=== PATIENT | female | born 1995 | race African-American/Black ===

== ENCOUNTER 2017-01-13 05:52 | Observation (INO) | payer OTHER ==
[~2017-01-13] VITALS: Ht 162.6 cm; Wt 69.9 kg
[2017-01-13] MEDS ORDERED: ONDANSETRON HCL 4 MG/2 ML VIAL IV ONE (06:45)
== END 2017-01-13 08:15 | disposition home or self-care (01) | DRG 566 ==
LOC: LDRP 05:52
PROVIDERS: ADMIT Obstetrics & Gynecology; ATTEND Obstetrics & Gynecology
DX: O21.2 Late vomiting of pregnancy (principal); O26.892 Other specified pregnancy related conditions, second trimester; R19.7 Diarrhea, unspecified; R10.9 Unspecified abdominal pain; Z3A.24 24 weeks gestation of pregnancy
CPT/HCPCS: 59025; 81002; G0378; J2405; J7030

== ENCOUNTER 2018-02-25 03:42 | Emergency (ER) | payer OTHER ==
[~2018-02-25] VITALS: Ht 160 cm; Wt 90.7 kg
[2018-02-25] MEDS ORDERED: SODIUM CHLORIDE 0.9% 1,000 ML IV ONE ×2 (04:45)
[2018-02-25] MEDS ORDERED: cefTRIAXone 1GM/10ml IVPUSH 10 ML IV ONE (04:45)
[2018-02-25] MEDS ORDERED: metroNIDAZOLE 500MG/100ML 100 ML IV ONE (04:45)
[2018-02-25] MEDS ORDERED: ONDANSETRON HCL 4 MG/2 ML VIAL IV ONE (04:45)
[2018-02-25 04:58] LABS: Basophils # (auto) 0.1 uL; Basophils % (auto) 0.5 % (0.0-2.0); Eosinophils # (auto) 0 uL; Eosinophils % (auto) 0.1 % (0.0-7.0); Hematocrit 44.4 % (36.0-46.0); Hemoglobin 14.8 g/dL (12.2-16.2); Lymphocytes # (auto) 1.6 uL; Lymphocytes % (auto) 14.6 % (10.0-50.0); Mean Corpuscular Hemoglobin 28.9 pg (28.0-32.0); Mean Corpuscular Hgb Conc. 33.4 g/dL (32.0-36.0); Mean Corpuscular Volume 86.5 fL (80.0-100.0); Monocytes # (auto) 0.5 uL; Monocytes % (auto) 4.5 % (0.0-12.0); Neutrophils # (auto) 8.6 uL; Neutrophils % (auto) 80.3 % (37.0-80.0); Platelet Count (auto) 250 10^3/uL (140-450); Red Blood Cells 5.14 10^6/uL (4.0-5.20); Red Cell Distribution Width 14.1 % (11.8-14.3); White Blood Cell 10.7 10^3/uL (4.4-10.8)
[2018-02-25 05:11] LABS: INR 1.02 (0.9-1.15); Partial Thromboplastin Time 30.1 sec (23.78-33.04); Prothrombin Time 10.9 sec (9.27-12.13)
[2018-02-25 05:11] LABS: Urine Bacteria FEW /hpf (None Seen); Urine Blood Negative /uL (Negative); Urine Mucus FEW (None Seen); Urine WBC 32 /hpf (0 - 5)
[2018-02-25 05:16] LABS: Albumin 3.6 g/dL (3.4-5.0); BUN/Creatinine Ratio 9.3; Calcium 8.5 mg/dL (8.5-10.1); Potassium 3.2 mmol/L (3.5-5.1)
[2018-02-25 05:19] LABS: Bilirubin, Total 0.4 mg/dL (0.2-1.0); Total Protein 7.4 g/dL (6.4-8.2)
[2018-02-25 06:18] VITALS: BP 121/73
== END 2018-02-25 06:09 | disposition home or self-care (01) ==
LOC: EDBD 03:42 → ER 03:42
DX: K52.9 Noninfective gastroenteritis and colitis, unspecified (principal); F10.10 Alcohol abuse, uncomplicated; F17.210 Nicotine dependence, cigarettes, uncomplicated
CPT/HCPCS: 36415; 80053; 80320; 81001; 81025; 82150; 83690; 85025; 85610; 85730; 96365; 96375; 99284; J2405; J3490; J7030

== ENCOUNTER 2018-06-04 07:46 | Emergency (ER) | payer OTHER ==
[~2018-06-04] VITALS: Ht 160 cm; Wt 90.7 kg
[2018-06-04 08:10] VITALS: BP 141/70
[2018-06-04] MEDS ORDERED: KETOROLAC TROMETH 60MG/2ML VIAL IM ONE (08:30)
[2018-06-04] MEDS ORDERED: cefTRIAXone SOD 1,000 MG VL IM ONE (08:30)
[2018-06-04] MEDS ORDERED: methylPREDNISolone SOD SUCC 125 MG/2 ML VL IM ONE (08:30)
[2018-06-04] MEDS ORDERED: LIDOCAINE 1% (LOCAL ANESTH.) PF 5ml SDV ONE (08:41)
== END 2018-06-04 09:02 | disposition home or self-care (01) ==
LOC: ER 07:46
DX: K12.2 Cellulitis and abscess of mouth (principal); M54.2 Cervicalgia; F17.210 Nicotine dependence, cigarettes, uncomplicated; F12.90 Cannabis use, unspecified, uncomplicated
CPT/HCPCS: 96372; 99284; J0696; J1885; J2930

== ENCOUNTER 2020-05-18 17:30 | Emergency (ER) | payer MEDICAID, OTHER ==
[~2020-05-18] VITALS: Ht 162.6 cm; Wt 90.7 kg
[2020-05-18] MEDS ORDERED: cloNIDine HCL 0.1 MG TAB PO ONE (23:00)
[2020-05-18 23:21] LABS: Basophils # (auto) 0.1 10 ^3/uL (0-0.2); Basophils % (auto) 0.6 % (0.0-2.0); Eosinophils # (auto) 0 10 ^3/uL (0-0.8); Eosinophils % (auto) 0.4 % (0.0-7.0); Hematocrit 39.2 % (36.0-46.0); Hemoglobin 12.8 g/dL (12.2-16.2); Lymphocytes # (auto) 1.5 10 ^3/uL (0.4-5.4); Lymphocytes % (auto) 16.1 % (10.0-50.0); Mean Corpuscular Hemoglobin 29.9 pg (28.0-32.0); Mean Corpuscular Hgb Conc. 32.5 g/dL (32.0-36.0); Monocytes # (auto) 0.6 10 ^3/uL (0-1.3); Monocytes % (auto) 6.8 % (0.0-12.0); Neutrophils % (auto) 76.1 % (37.0-80.0); Nucleated Red Blood Cells % 0.1 %; Platelet Count (auto) 133 10^3/uL (140-450); Red Blood Cells 4.27 10^6/uL (4.0-5.20); Red Cell Distribution Width 14.7 % (11.8-14.3); White Blood Cell 9.1 10^3/uL (4.4-10.8)
[2020-05-18 23:32] LABS: Urine Bacteria FEW /hpf (None Seen); Urine Blood Negative /uL (Negative); Urine Hyaline Cast FEW /lpf (0 - 2); Urine Specific Gravity 1.008 (1.001-1.035); Urine WBC 1 /hpf (0 - 5)
[2020-05-18 23:39] LABS: Calcium 8.8 mg/dL (8.5-10.1); Potassium 3.9 mmol/L (3.5-5.1)
[2020-05-18 23:42] LABS: Albumin 3.8 g/dL (3.4-5.0); BUN/Creatinine Ratio 9.5
[2020-05-18 23:45] LABS: Bilirubin, Total 0.5 mg/dL (0.2-1.0); Total Protein 7.2 g/dL (6.4-8.2)
[2020-05-18 23:48] LABS: Alcohol, Urine < 3.0 mg/dL (0-10); Amphetamine Screen, Urine NEGATIVE (NEGATIVE); Barbiturate Scree,Urine NEGATIVE (NEGATIVE); Benzodiazephine Screen, Urine NEGATIVE (NEGATIVE); Cannabinoid Screen, Urine POSITIVE (NEGATIVE); Cocaine Screen, Urine NEGATIVE (NEGATIVE); Opiate Scree,Urine NEGATIVE (NEGATIVE); Phencyclidine Screen, Urine NEGATIVE (NEGATIVE)
[2020-05-19 03:00] VITALS: BP 163/100
== END 2020-05-19 03:36 | disposition other institution (70) ==
LOC: ER 17:30
DX: I10 Essential (primary) hypertension (principal); F41.9 Anxiety disorder, unspecified; R51 Headache; D36.7 Benign neoplasm of other specified sites
CPT/HCPCS: 36415; 70450; 80053; 80307; 81001; 81025; 82962; 85025

== ENCOUNTER → 2020-05-19 | Emergency (ER) | payer MEDICAID ==
[~2020-05-19] VITALS: Ht 162.6 cm; Wt 90.7 kg
[~2020-05-19] MED LIST: IOHEXOL 300 MG/ML 100ML BOTTLE IJ ONE
[2020-05-19 12:23] LABS: Urine Bacteria FEW /hpf (None Seen); Urine Blood Negative /uL (Negative); Urine Mucus FEW (None Seen); Urine Specific Gravity 1.027 (1.001-1.035); Urine WBC 15 /hpf (0 - 5)
[2020-05-19 12:45] LABS: Basophils # (auto) 0 10 ^3/uL (0-0.2); Basophils % (auto) 0.4 % (0.0-2.0); Eosinophils # (auto) 0.1 10 ^3/uL (0-0.8); Eosinophils % (auto) 0.5 % (0.0-7.0); Hematocrit 37.4 % (36.0-46.0); Hemoglobin 12.4 g/dL (12.2-16.2); Lymphocytes # (auto) 1.4 10 ^3/uL (0.4-5.4); Lymphocytes % (auto) 13.7 % (10.0-50.0); Mean Corpuscular Hemoglobin 30.4 pg (28.0-32.0); Mean Corpuscular Hgb Conc. 33.1 g/dL (32.0-36.0); Mean Corpuscular Volume 91.9 fL (80.0-100.0); Monocytes # (auto) 0.9 10 ^3/uL (0-1.3); Monocytes % (auto) 8.8 % (0.0-12.0); Neutrophils % (auto) 76.6 % (37.0-80.0); Nucleated Red Blood Cells % 0.1 %; Platelet Count (auto) 144 10^3/uL (140-450); Red Blood Cells 4.07 10^6/uL (4.0-5.20); Red Cell Distribution Width 14.6 % (11.8-14.3); White Blood Cell 10.4 10^3/uL (4.4-10.8)
[2020-05-19 13:01] LABS: Albumin 3.8 g/dL (3.4-5.0); Anion Gap 5 (5-15); Blood Urea Nitrogen 16 mg/dL (7-18); Calcium 8.9 mg/dL (8.5-10.1); Carbon Dioxide 29 mmol/L (21-32); Chloride 106 mmol/L (98-107); Glucose 90 mg/dL (74-106); Potassium 3.6 mmol/L (3.5-5.1); Sodium 140 mmol/L (136-145)
[2020-05-19 13:07] LABS: Alanine Aminotransferase 28 U/L (13-56); Alkaline Phosphatase 80 U/L (45-117); Aspartate Aminotransferase 15 U/L (15-37); BUN/Creatinine Ratio 11.9; Bilirubin, Total 0.4 mg/dL (0.2-1.0); GFR African American 61 mL/min; GFR Non-African American 50 mL/min
[2020-05-19 14:47] VITALS: BP 160/98
== END | disposition home or self-care (01) ==
LOC: ER 10:34
DX: D35.00 Benign neoplasm of unspecified adrenal gland (principal); I10 Essential (primary) hypertension; F17.210 Nicotine dependence, cigarettes, uncomplicated
CPT/HCPCS: 36415; 71045; 74177; 80053; 81001; 84484; 85025; 99285; Q9967

== ENCOUNTER 2020-06-30 11:55 | Emergency (ER) | payer MEDICAID ==
[~2020-06-30] VITALS: Ht 162.6 cm; Wt 72.6 kg
[2020-06-30] MEDS ORDERED: SODIUM CHLORIDE 0.9% 1,000 ML IV ONE ×2 (12:15)
[2020-06-30] MEDS ORDERED: amLODIPine BESYLATE 5 MG TAB PO ONE (12:15)
[2020-06-30 13:34] LABS: Basophils # (auto) 0 10 ^3/uL (0-0.2); Basophils % (auto) 0.4 % (0.0-2.0); Eosinophils # (auto) 0.1 10 ^3/uL (0-0.8); Eosinophils % (auto) 0.7 % (0.0-7.0); Hematocrit 43.7 % (36.0-46.0); Hemoglobin 14.6 g/dL (12.2-16.2); Lymphocytes # (auto) 0.9 10 ^3/uL (0.4-5.4); Lymphocytes % (auto) 12.7 % (10.0-50.0); Mean Corpuscular Hemoglobin 28.9 pg (28.0-32.0); Mean Corpuscular Hgb Conc. 33.4 g/dL (32.0-36.0); Mean Corpuscular Volume 86.5 fL (80.0-100.0); Monocytes # (auto) 0.6 10 ^3/uL (0-1.3); Monocytes % (auto) 8.1 % (0.0-12.0); Neutrophils # (auto) 5.5 10 ^3/uL (1.6-8.6); Neutrophils % (auto) 78.1 % (37.0-80.0); Nucleated Red Blood Cells % 0.1 %; Platelet Count (auto) 206 10^3/uL (140-450); Red Blood Cells 5.05 10^6/uL (4.0-5.20); Red Cell Distribution Width 13.5 % (11.8-14.3); White Blood Cell 7.1 10^3/uL (4.4-10.8)
[2020-06-30 13:50] LABS: Anion Gap 8 (5-15); Blood Urea Nitrogen 14 mg/dL (7-18); Calcium 9.6 mg/dL (8.5-10.1); Carbon Dioxide 29 mmol/L (21-32); Chloride 101 mmol/L (98-107); Glucose 94 mg/dL (74-106); Sodium 138 mmol/L (136-145)
[2020-06-30 13:52] LABS: Alanine Aminotransferase 39 U/L (13-56); Aspartate Aminotransferase 25 U/L (15-37); BUN/Creatinine Ratio 11.1; GFR African American 66 mL/min; GFR Non-African American 55 mL/min
[2020-06-30 14:00] VITALS: BP 145/90
[2020-06-30 14:00] LABS: Alkaline Phosphatase 81 U/L (45-117); Bilirubin, Total 0.5 mg/dL (0.2-1.0); Total Protein 7.7 g/dL (6.4-8.2)
[2020-06-30 14:09] LABS: Potassium 2.7 mmol/L (3.5-5.1)
[2020-06-30 14:43] LABS: Urine Bacteria NONE SEEN /hpf (None Seen); Urine Blood Negative /uL (Negative); Urine Specific Gravity 1.005 (1.001-1.035); Urine WBC 1 /hpf (0 - 5)
[2020-06-30] MEDS ORDERED: POTASSIUM CHL 20MEQ/100ML 100 ML IV ONE (14:45)
[2020-06-30] MEDS ORDERED: POTASSIUM EFFERVESENT TAB 25 MEQ PO ONE (14:45)
== END 2020-06-30 15:17 | disposition home or self-care (01) ==
LOC: EDBD 11:55 → ER 11:55
DX: I16.0 Hypertensive urgency (principal); R55 Syncope and collapse; E87.6 Hypokalemia; F17.210 Nicotine dependence, cigarettes, uncomplicated
CPT/HCPCS: 36415; 70450; 71045; 80053; 81001; 84484; 85025; 96361; 96374; 99285; J3480; J7030; 96365

== ENCOUNTER 2020-08-28 04:44 | Emergency (ER) | payer MEDICAID ==
[~2020-08-28] VITALS: Ht 154.9 cm; Wt 72.6 kg
[2020-08-28 04:55] VITALS: BP 160/103
[2020-08-28] MEDS ORDERED: HYDROcodone-ACET 10/325MG TAB PO ONE (07:00)
[2020-08-28] MEDS ORDERED: ONDANSETRON ODT 4 MG TAB PO ONE (07:00)
== END 2020-08-28 09:15 | disposition left against medical advice (07) ==
LOC: ER 04:44 → EDUNIT# 04:44 → EDBD 04:44 → ER 09:15
DX: R51.9 Headache, unspecified (principal); I10 Essential (primary) hypertension; F17.210 Nicotine dependence, cigarettes, uncomplicated

== ENCOUNTER 2020-10-14 11:42 | Inpatient (IN) | payer MEDICAID ==
[~2020-10-14] VITALS: Ht 160 cm; Wt 91.2 kg
[2020-10-14] MEDS ORDERED: LORazepam 2MG/ML-1ML VIAL IV ONE (12:00)
[2020-10-14] MEDS ORDERED: hydrALAZINE HCL 20 MG/ML VL IV ONE (12:00)
[2020-10-14] MEDS ORDERED: SODIUM CHLORIDE 0.9% 1,000 ML IV ONE (12:00)
[2020-10-14] MEDS ORDERED: MORPHINE SULFATE 4 MG/ML SYR/VIAL IV ONE (12:00)
[2020-10-14] MEDS ORDERED: ONDANSETRON HCL 4 MG/2 ML VIAL IV ONE (12:00)
[2020-10-14 12:36] LABS: Hematocrit 14.6 % (36.0-46.0); Mean Corpuscular Hemoglobin 30.4 pg (28.0-32.0); Mean Corpuscular Hgb Conc. 35.3 g/dL (32.0-36.0)
[2020-10-14 12:51] LABS: INR 1.07 (0.9-1.15); Partial Thromboplastin Time 24.1 sec (23.0-31.2)
[2020-10-14 12:56] LABS: Hemoglobin 5.2 g/dL (12.2-16.2)
[2020-10-14 12:57] LABS: Basophils % (manual) 0 (0.0-2.0); Blast Cells 0; Eosinophils % (manual) 0 (0-7); Platelet Count (auto) 24 10^3/uL (140-450); Promyelocytes % 0; Reactive Lymphocytes 0
[2020-10-14 14:14] LABS: Albumin 3.6 g/dL (3.4-5.0); BUN/Creatinine Ratio 6.7; Calcium 8.9 mg/dL (8.5-10.1); Magnesium 2.3 mg/dL (1.6-2.6); Potassium 3.8 mmol/L (3.5-5.1)
[2020-10-14 14:22] LABS: Bilirubin, Total 0.8 mg/dL (0.2-1.0); Total Protein 7.5 g/dL (6.4-8.2)
[2020-10-14 14:27] LABS: Band Neutrophils % (manual) 19; Lymphocytes % (manual) 13 (10.0-50.0); Metamyelocytes % 7; Monocytes % (manual) 4 (0-12); Myelocytes % 2
[2020-10-14] MEDS ORDERED: amLODIPine BESYLATE 5 MG TAB PO ONE (15:30)
[2020-10-14 15:44] LABS: Urine Amorphous Crystal FEW /hpf (None Seen); Urine Bacteria FEW /hpf (None Seen); Urine Blood 3+ /uL (Negative); Urine Specific Gravity 1.009 (1.001-1.035); Urine WBC 6 /hpf (0 - 5)
[2020-10-14] MEDS ORDERED: LABETALOL HCL 5 MG/ML 4ML SYRINGE IV ONE (17:00)
[2020-10-14] MEDS ORDERED: NITROGLYCERIN 0.4 MG SL TAB SL PRN (18:00)
[2020-10-14] MEDS: SODIUM BICARBONATE 50ML VIAL 50 ML in SOD CHL 0.45% 1,000 ML IV SCH (18:00)
[2020-10-14] MEDS ORDERED: METOPROLOL SUCCINATE XL 50 MG TAB PO ONE (18:00)
[2020-10-14] MEDS ORDERED: MORPHINE SULF INJ 2 MG/ML SYRINGE 1ML IV PRN (18:00)
[2020-10-14] MEDS: AZITHROMYCIN 500MG/ 250ML 250 ML IV SCH (18:22)
[2020-10-14] MEDS: FAMOTIDINE 20 MG TAB PO SCH (18:50)
[2020-10-14] MEDS: cefTRIAXone 1GM/50ML D5W 50 ML IV SCH (18:50)
[2020-10-14 18:54] LABS: % Iron Saturation 94.9 % (15-50)
[2020-10-14 19:13] LABS: Follicle Stimulating Hormone 1.13 IU/L (SEE BELOW)
[2020-10-14] MEDS: MORPHINE SULF INJ 2 MG/ML SYRINGE 1ML IV PRN (21:47)
[2020-10-14] MEDS: ONDANSETRON HCL 4 MG/2 ML VIAL IV PRN (21:47)
[2020-10-15] VITALS (14 sets, daily range): BP systolic 139–169; BP diastolic 75–104
[2020-10-15] MEDS: ACETAMINOPHEN 500 MG TAB PO PRN (01:27)
[2020-10-15] MEDS: LABETALOL HCL 5 MG/ML 4ML SYRINGE IV PRN (01:28)
[2020-10-15] MEDS: MORPHINE SULF INJ 2 MG/ML SYRINGE 1ML IV PRN (04:24)
[2020-10-15] MEDS: ONDANSETRON HCL 4 MG/2 ML VIAL IV PRN ×3 (04:24→20:55)
[2020-10-15] MEDS: SODIUM BICARBONATE 50ML VIAL 50 ML in SOD CHL 0.45% 1,000 ML IV SCH (04:30)
[2020-10-15 05:07] LABS: Albumin 3.4 g/dL (3.4-5.0); Calcium 8.4 mg/dL (8.5-10.1)
[2020-10-15 05:15] LABS: BUN/Creatinine Ratio 6.8; Bilirubin, Total 0.8 mg/dL (0.2-1.0); Total Protein 7.4 g/dL (6.4-8.2)
[2020-10-15] MEDS ORDERED: FAMOTIDINE 20 MG TAB PO SCH (10:00)
[2020-10-15 10:14] LABS: White Blood Cell 10.4 10^3/uL (4.4-10.8)
[2020-10-15 10:17] LABS: Hematocrit 20.2 % (36.0-46.0); Hemoglobin 7.4 g/dL (12.2-16.2); Mean Corpuscular Hemoglobin 31.4 pg (28.0-32.0); Mean Corpuscular Hgb Conc. 36.5 g/dL (32.0-36.0); Red Blood Cells 2.35 10^6/uL (4.0-5.20); Red Cell Distribution Width 18.4 % (11.8-14.3)
[2020-10-15 10:23] LABS: Platelet Count (auto) 16 10^3/uL (140-450)
[2020-10-15 10:25] LABS: Basophils % (manual) 0 (0.0-2.0); Blast Cells 0; Eosinophils % (manual) 0 (0-7); Promyelocytes % 0; Reactive Lymphocytes 0
[2020-10-15 10:38] LABS: Albumin 3.5 g/dL (3.4-5.0); Calcium 8.6 mg/dL (8.5-10.1); Potassium 3.6 mmol/L (3.5-5.1)
[2020-10-15 10:50] LABS: Bilirubin, Total 0.9 mg/dL (0.2-1.0); Total Protein 7.5 g/dL (6.4-8.2)
[2020-10-15 11:30] LABS: Band Neutrophils % (manual) 12; Lymphocytes % (manual) 17 (10.0-50.0); Metamyelocytes % 8; Monocytes % (manual) 2 (0-12); Myelocytes % 5
[2020-10-15 11:47] LABS: BUN/Creatinine Ratio 6.8
[2020-10-15] MEDS: AZITHROMYCIN 500MG/ 250ML 250 ML IV SCH (12:49)
[2020-10-15] MEDS: cefTRIAXone 1GM/50ML D5W 50 ML IV SCH (12:50)
[2020-10-15] MEDS: METOPROLOL SUCCINATE XL 50 MG TAB PO SCH (13:03)
[2020-10-15 19:05] LABS: Hematocrit 19.2 % (36.0-46.0)
[2020-10-15 19:11] LABS: Hemoglobin 6.9 g/dL (12.2-16.2)
[2020-10-15] MEDS ORDERED: amLODIPine BESYLATE 5 MG TAB PO ONE (21:30)
[2020-10-15] MEDS: cloNIDine HCL 0.1 MG TAB PO SCH (22:08)
[2020-10-15 23:58] LABS: Urine Bacteria FEW /hpf (None Seen); Urine Blood 3+ /uL (Negative); Urine Hyaline Cast FEW /lpf (0 - 2); Urine Mucus FEW (None Seen); Urine Specific Gravity 1.007 (1.001-1.035); Urine WBC 2 /hpf (0 - 5)
[2020-10-16 00:08] LABS: Protein, Urine 179.4 mg/dL (0.0-11.9)
[2020-10-16 00:13] VITALS: BP 120/69
[2020-10-16] MEDS: SODIUM CHLORIDE 0.9% 1,000 ML IV SCH ×3 (00:16→17:30)
[2020-10-16] MEDS: MORPHINE SULF INJ 2 MG/ML SYRINGE 1ML IV PRN ×2 (02:22→23:07)
[2020-10-16] MEDS: ONDANSETRON HCL 4 MG/2 ML VIAL IV PRN ×2 (03:56→09:31)
[2020-10-16] MEDS: LABETALOL HCL 5 MG/ML 4ML SYRINGE IV PRN (04:29)
[2020-10-16 06:55] LABS: Hematocrit 17.2 % (36.0-46.0); Mean Corpuscular Hemoglobin 31.8 pg (28.0-32.0); Mean Corpuscular Hgb Conc. 37.1 g/dL (32.0-36.0); Mean Corpuscular Volume 85.6 fL (80.0-100.0); Red Blood Cells 2.01 10^6/uL (4.0-5.20); Red Cell Distribution Width 19.2 % (11.8-14.3); White Blood Cell 8.7 10^3/uL (4.4-10.8)
[2020-10-16 06:59] LABS: Platelet Count (auto) 39 10^3/uL (140-450)
[2020-10-16 07:02] LABS: Potassium 3.8 mmol/L (3.5-5.1)
[2020-10-16 07:13] LABS: Hemoglobin 6.4 g/dL (12.2-16.2)
[2020-10-16 07:14] LABS: Basophils % (manual) 0 (0.0-2.0); Blast Cells 0; Eosinophils % (manual) 0 (0-7); Metamyelocytes % 0; Myelocytes % 0; Promyelocytes % 0; Reactive Lymphocytes 0
[2020-10-16 07:17] LABS: Albumin 3.3 g/dL (3.4-5.0); BUN/Creatinine Ratio 6.5; Bilirubin, Total 0.9 mg/dL (0.2-1.0); CRP High Sensitivity 3.6 mg/dL (< 0.3); Calcium 8.5 mg/dL (8.5-10.1); Magnesium 2.5 mg/dL (1.6-2.6); Total Protein 7.2 g/dL (6.4-8.2)
[2020-10-16 08:37] LABS: Band Neutrophils % (manual) 4; Lymphocytes % (manual) 23 (10.0-50.0); Monocytes % (manual) 8 (0-12)
[2020-10-16 09:28] LABS: Magnesium 2.5 mg/dL (1.6-2.6); Phosphorus 6.9 mg/dL (2.5-4.90)
[2020-10-16] MEDS: cefTRIAXone 1GM/50ML D5W 50 ML IV SCH (09:28)
[2020-10-16] MEDS: AZITHROMYCIN 500MG/ 250ML 250 ML IV SCH (09:29)
[2020-10-16] MEDS: cloNIDine HCL 0.1 MG TAB PO SCH ×2 (09:29→21:53)
[2020-10-16] MEDS: amLODIPine BESYLATE 5 MG TAB PO SCH (09:30)
[2020-10-16] MEDS: METOPROLOL SUCCINATE XL 50 MG TAB PO SCH (09:30)
[2020-10-16] MEDS: SODIUM BICARBONATE 650 MG TAB PO SCH ×2 (09:31→21:53)
[2020-10-16] MEDS: DexAMETHasone SOD PHOS 4 MG/1ML SDV INJ IV SCH ×2 (09:52→21:53)
[2020-10-16 12:15] VITALS: BP 139/93
[2020-10-16 12:35] VITALS: BP 140/87
[2020-10-16] MEDS ORDERED: CHOLECALCIFEROL (VITD3) 2,000 UNIT CAP/TAB PO ONE (13:00)
[2020-10-16 13:05] VITALS: BP 144/94
[2020-10-16 13:35] VITALS: BP 138/89
[2020-10-16 14:15] VITALS: BP 131/91
[2020-10-16] MEDS: ACETAMINOPHEN 500 MG TAB PO PRN (15:31)
[2020-10-16] MEDS ORDERED: IOHEXOL 300 MG/ML 100ML BOTTLE IJ ONE (15:59)
[2020-10-16] MEDS ORDERED: LIDOCAINE 2%HCL (LOCAL ANESTH.) INJ 20ML MDV ONE (15:59)
[2020-10-16] MEDS ORDERED: MIDAZOLAM HCL 1MG/1ML-2 ML VIAL IV ONE (16:00)
[2020-10-16] MEDS ORDERED: HEPARIN SODIUM (PORCINE) 5000 UNITS/ML 1ML VIAL ONE (16:51)
[2020-10-16] MEDS: CALCIUM ACETATE 667 MG CAP PO SCH (18:00)
[2020-10-16] MEDS: FAMOTIDINE 20 MG TAB PO SCH (18:30)
[2020-10-16] MEDS: PROPRANOLOL HCL 20 MG TAB PO SCH (21:53)
[2020-10-16] MEDS: BUDESONIDE (INHALATION) 180 MCG IH IN SCH (22:00)
[2020-10-17 01:52] LABS: Hematocrit 25.5 % (36.0-46.0); Mean Corpuscular Hemoglobin 31.3 pg (28.0-32.0); Mean Corpuscular Hgb Conc. 35.2 g/dL (32.0-36.0); Mean Corpuscular Volume 88.7 fL (80.0-100.0); Platelet Count (auto) 44 10^3/uL (140-450); Red Blood Cells 2.88 10^6/uL (4.0-5.20); White Blood Cell 12.5 10^3/uL (4.4-10.8)
[2020-10-17 02:05] LABS: Red Cell Distribution Width 20.5 % (11.8-14.3)
[2020-10-17 02:06] LABS: Basophils % (manual) 0 (0.0-2.0); Blast Cells 0; Eosinophils % (manual) 0 (0-7); Promyelocytes % 0; Reactive Lymphocytes 0
[2020-10-17 05:12] LABS: Band Neutrophils % (manual) 3; Lymphocytes % (manual) 16 (10.0-50.0); Metamyelocytes % 2; Monocytes % (manual) 4 (0-12); Myelocytes % 1
[2020-10-17 06:26] LABS: Hemoglobin 7.4 g/dL (12.2-16.2); Mean Corpuscular Hemoglobin 32.1 pg (28.0-32.0); Platelet Count (auto) 34 10^3/uL (140-450)
[2020-10-17 06:28] LABS: Hematocrit 20.2 % (36.0-46.0); Mean Corpuscular Hgb Conc. 36.5 g/dL (32.0-36.0); White Blood Cell 10.3 10^3/uL (4.4-10.8)
[2020-10-17 06:33] LABS: Red Cell Distribution Width 20.5 % (11.8-14.3)
[2020-10-17 06:40] LABS: Albumin 3.5 g/dL (3.4-5.0); Calcium 8.9 mg/dL (8.5-10.1); Potassium 4.2 mmol/L (3.5-5.1)
[2020-10-17 06:47] LABS: BUN/Creatinine Ratio 6.5; Bilirubin, Total 1.1 mg/dL (0.2-1.0); Total Protein 7.3 g/dL (6.4-8.2)
[2020-10-17] MEDS: PROPRANOLOL HCL 20 MG TAB PO SCH ×3 (06:53→21:59)
[2020-10-17] MEDS: SODIUM CHLORIDE 0.9% 1,000 ML IV SCH ×2 (09:00→13:30)
[2020-10-17] MEDS: cefTRIAXone 1GM/50ML D5W 50 ML IV SCH (09:11)
[2020-10-17] MEDS: METOCLOPRAMIDE HCL 5MG/ml INJ 2ml VIAL IV PRN ×2 (10:13→17:08)
[2020-10-17] MEDS: CALCIUM ACETATE 667 MG CAP PO SCH ×3 (10:14→17:07)
[2020-10-17] MEDS: ZINC SULFATE 220mg CAP or TAB PO SCH (10:14)
[2020-10-17] MEDS: ASCORBIC ACID 1,000 MG TAB PO SCH (10:14)
[2020-10-17] MEDS: cloNIDine HCL 0.1 MG TAB PO SCH ×2 (10:14→21:59)
[2020-10-17] MEDS: amLODIPine BESYLATE 5 MG TAB PO SCH (10:14)
[2020-10-17] MEDS: SODIUM BICARBONATE 650 MG TAB PO SCH ×2 (10:15→21:58)
[2020-10-17] MEDS: DexAMETHasone SOD PHOS 4 MG/1ML SDV INJ IV SCH ×2 (10:15→22:08)
[2020-10-17] MEDS: AZITHROMYCIN 500MG/ 250ML 250 ML IV SCH (10:15)
[2020-10-17] MEDS: CHOLECALCIFEROL (VITD3) 2,000 UNIT CAP/TAB PO SCH (10:32)
[2020-10-17] MEDS ORDERED: METOPROLOL TARTRATE 25 MG TAB PO ONE (11:00)
[2020-10-17 11:39] LABS: Basophils % (manual) 0 (0.0-2.0); Blast Cells 0; Eosinophils % (manual) 0 (0-7); Reactive Lymphocytes 0
[2020-10-17] MEDS: BUDESONIDE (INHALATION) 180 MCG IH IN SCH ×2 (11:41→20:40)
[2020-10-17 11:42] LABS: Band Neutrophils % (manual) 22; Lymphocytes % (manual) 20 (10.0-50.0); Metamyelocytes % 1; Monocytes % (manual) 1 (0-12); Myelocytes % 5; Promyelocytes % 3
[2020-10-17] MEDS ORDERED: diphenhdrAMINE HCL 50 MG/1 ML VL IV PRN ×2 (13:00→13:15)
[2020-10-17] MEDS ORDERED: CALCIUM GLUC IV ONE ×3 (13:00→13:15)
[2020-10-17] MEDS ORDERED: D5AE IV ONE ×2 (13:00→13:15)
[2020-10-17] MEDS ORDERED: D5W 5% IV ONE (13:15)
[2020-10-17] MEDS ORDERED: levoFLOXacin 500MG 100 ML IV ONE (18:15)
[2020-10-17] MEDS: SODIUM BICARBONATE 50ML VIAL 75 ML in SOD CHL 0.45% 1,000 ML IV SCH (18:30)
[2020-10-17] MEDS: ALBUTEROL SULF HFA 90MCG INH 200DOSE IN PRN (20:40)
[2020-10-17] MEDS: HYDROcodone-ACET 5/325MG TAB PO PRN (21:00)
[2020-10-17] MEDS: METOPROLOL TARTRATE 25 MG TAB PO SCH (21:59)
[2020-10-18] MEDS: METOCLOPRAMIDE HCL 5MG/ml INJ 2ml VIAL IV PRN (01:02)
[2020-10-18 04:29] LABS: Basophils # (auto) 0 10 ^3/uL (0-0.2); Eosinophils # (auto) 0 10 ^3/uL (0-0.8); Monocytes # (auto) 0.4 10 ^3/uL (0-1.3); Platelet Count (auto) 35 10^3/uL (140-450); White Blood Cell 8.8 10^3/uL (4.4-10.8)
[2020-10-18 04:31] LABS: Basophils % (auto) 0.2 % (0.0-2.0); Hematocrit 18.2 % (36.0-46.0); Lymphocytes # (auto) 1.3 10 ^3/uL (0.4-5.4); Lymphocytes % (auto) 15.4 % (10.0-50.0); Mean Corpuscular Hemoglobin 32.4 pg (28.0-32.0); Mean Corpuscular Hgb Conc. 36.1 g/dL (32.0-36.0); Mean Corpuscular Volume 89.8 fL (80.0-100.0); Neutrophils # (auto) 7.1 10 ^3/uL (1.6-8.6); Neutrophils % (auto) 80.4 % (37.0-80.0); Red Blood Cells 2.03 10^6/uL (4.0-5.20)
[2020-10-18 04:50] LABS: Albumin 3.4 g/dL (3.4-5.0); Calcium 8.4 mg/dL (8.5-10.1); Potassium 4.1 mmol/L (3.5-5.1)
[2020-10-18 04:53] LABS: Bilirubin, Total 0.9 mg/dL (0.2-1.0)
[2020-10-18 06:00] LABS: Nucleated Red Blood Cells % 4.3 %
[2020-10-18] MEDS: ALBUTEROL SULF HFA 90MCG INH 200DOSE IN PRN ×3 (06:00→19:03)
[2020-10-18] MEDS: BUDESONIDE (INHALATION) 180 MCG IH IN SCH ×3 (06:00→18:38)
[2020-10-18 06:02] LABS: Hemoglobin 6.6 g/dL (12.2-16.2); Red Cell Distribution Width 26.3 % (11.8-14.3)
[2020-10-18 07:58] VITALS: BP 139/83
[2020-10-18 08:13] VITALS: BP 166/103
[2020-10-18] MEDS: CALCIUM ACETATE 667 MG CAP PO SCH ×3 (08:24→18:59)
[2020-10-18] MEDS: PROPRANOLOL HCL 20 MG TAB PO SCH ×3 (08:25→22:00)
[2020-10-18] MEDS: SODIUM BICARBONATE 50ML VIAL 75 ML in SOD CHL 0.45% 1,000 ML IV SCH ×2 (08:41→21:55)
[2020-10-18] MEDS ORDERED: ONDANSETRON HCL 4 MG/2 ML VIAL IV PRN (08:45)
[2020-10-18 11:16] VITALS: BP 176/92
[2020-10-18 11:31] VITALS: BP 133/81
[2020-10-18] MEDS: ZINC SULFATE 220mg CAP or TAB PO SCH (12:49)
[2020-10-18] MEDS: SODIUM BICARBONATE 650 MG TAB PO SCH ×2 (12:49→22:00)
[2020-10-18] MEDS: DexAMETHasone SOD PHOS 4 MG/1ML SDV INJ IV SCH ×2 (12:49→22:00)
[2020-10-18] MEDS: METOPROLOL TARTRATE 25 MG TAB PO SCH (12:51)
[2020-10-18] MEDS: cloNIDine HCL 0.1 MG TAB PO SCH ×2 (12:51→22:00)
[2020-10-18] MEDS: CHOLECALCIFEROL (VITD3) 2,000 UNIT CAP/TAB PO SCH (12:52)
[2020-10-18] MEDS: ASCORBIC ACID 1,000 MG TAB PO SCH (12:52)
[2020-10-18] MEDS: amLODIPine BESYLATE 5 MG TAB PO SCH (12:52)
[2020-10-18 14:30] VITALS: BP 178/107
[2020-10-18 16:03] VITALS: BP 159/98
[2020-10-19 01:15] LABS: Hemoglobin 8.2 g/dL (12.2-16.2)
[2020-10-19 01:17] LABS: Hematocrit 23.6 % (36.0-46.0); Mean Corpuscular Hemoglobin 31.4 pg (28.0-32.0); Mean Corpuscular Hgb Conc. 34.8 g/dL (32.0-36.0); Mean Corpuscular Volume 90.3 fL (80.0-100.0); Platelet Count (auto) 44 10^3/uL (140-450); Red Blood Cells 2.61 10^6/uL (4.0-5.20); Red Cell Distribution Width 19.1 % (11.8-14.3); White Blood Cell 11.3 10^3/uL (4.4-10.8)
[2020-10-19 01:42] LABS: Basophils % (manual) 0 (0.0-2.0); Blast Cells 0; Eosinophils % (manual) 0 (0-7); Promyelocytes % 0; Reactive Lymphocytes 0
[2020-10-19 05:03] LABS: Band Neutrophils % (manual) 7; Monocytes % (manual) 5 (0-12)
[2020-10-19 05:04] LABS: Lymphocytes % (manual) 22 (10.0-50.0); Metamyelocytes % 1; Myelocytes % 2
[2020-10-19] MEDS: PROPRANOLOL HCL 20 MG TAB PO SCH ×2 (06:17→14:16)
[2020-10-19 06:19] LABS: Hemoglobin 8.3 g/dL (12.2-16.2); Red Blood Cells 2.61 10^6/uL (4.0-5.20)
[2020-10-19 06:23] LABS: Hematocrit 23.6 % (36.0-46.0); Mean Corpuscular Hemoglobin 31.9 pg (28.0-32.0); Mean Corpuscular Hgb Conc. 35.4 g/dL (32.0-36.0); Mean Corpuscular Volume 90.2 fL (80.0-100.0); Platelet Count (auto) 47 10^3/uL (140-450); Red Cell Distribution Width 19.6 % (11.8-14.3); White Blood Cell 11.8 10^3/uL (4.4-10.8)
[2020-10-19 06:35] LABS: Calcium 8.3 mg/dL (8.5-10.1)
[2020-10-19 06:51] LABS: Basophils % (manual) 0 (0.0-2.0); Blast Cells 0; Eosinophils % (manual) 0 (0-7); Promyelocytes % 0; Reactive Lymphocytes 0
[2020-10-19 06:52] LABS: Albumin 3.5 g/dL (3.4-5.0); BUN/Creatinine Ratio 6.8; Total Protein 6.6 g/dL (6.4-8.2)
[2020-10-19] MEDS: CALCIUM ACETATE 667 MG CAP PO SCH ×3 (07:30→20:26)
[2020-10-19] MEDS: amLODIPine BESYLATE 5 MG TAB PO SCH (07:30)
[2020-10-19] MEDS: cloNIDine HCL 0.1 MG TAB PO SCH (07:30)
[2020-10-19] MEDS: ZINC SULFATE 220mg CAP or TAB PO SCH (07:30)
[2020-10-19] MEDS: DexAMETHasone SOD PHOS 4 MG/1ML SDV INJ IV SCH (07:30)
[2020-10-19] MEDS: SODIUM BICARBONATE 650 MG TAB PO SCH (07:30)
[2020-10-19] MEDS: ASCORBIC ACID 1,000 MG TAB PO SCH (07:31)
[2020-10-19] MEDS: CHOLECALCIFEROL (VITD3) 2,000 UNIT CAP/TAB PO SCH (07:31)
[2020-10-19] MEDS ORDERED: ONDANSETRON HCL 4 MG/2 ML VIAL ONE (07:47)
[2020-10-19] MEDS ORDERED: ONDANSETRON HCL 4 MG/2 ML VIAL IV ONE (08:00)
[2020-10-19 08:06] LABS: Band Neutrophils % (manual) 6; Lymphocytes % (manual) 12 (10.0-50.0); Metamyelocytes % 3; Monocytes % (manual) 9 (0-12); Myelocytes % 3
[2020-10-19] MEDS: BUDESONIDE (INHALATION) 180 MCG IH IN SCH ×2 (10:06→20:10)
[2020-10-19 12:11] LABS: Hematocrit 23.1 % (36.0-46.0); Mean Corpuscular Hemoglobin 31.4 pg (28.0-32.0); Mean Corpuscular Hgb Conc. 34.7 g/dL (32.0-36.0); Mean Corpuscular Volume 90.5 fL (80.0-100.0); Red Blood Cells 2.55 10^6/uL (4.0-5.20); White Blood Cell 11.1 10^3/uL (4.4-10.8)
[2020-10-19] MEDS: SODIUM BICARBONATE 50ML VIAL 75 ML in SOD CHL 0.45% 1,000 ML IV SCH (12:20)
[2020-10-19 12:29] LABS: Platelet Count (auto) 40 10^3/uL (140-450); Red Cell Distribution Width 21.6 % (11.8-14.3)
[2020-10-19 12:30] LABS: Basophils % (manual) 0 (0.0-2.0); Blast Cells 0; Eosinophils % (manual) 0 (0-7); Promyelocytes % 0; Reactive Lymphocytes 0
[2020-10-19 15:20] LABS: Band Neutrophils % (manual) 4; Lymphocytes % (manual) 10 (10.0-50.0); Metamyelocytes % 7; Monocytes % (manual) 7 (0-12); Myelocytes % 2
[2020-10-19] MEDS ORDERED: SODIUM CHL 0.9% IV ONE (16:00)
[2020-10-19] MEDS ORDERED: CALCIUM GLUC IV ONE (16:00)
[2020-10-19 17:21] VITALS: BP 141/86
[2020-10-19] MEDS: levoFLOXacin 250MG 50 ML IV SCH (18:26)
[2020-10-19 22:13] LABS: Hematocrit 24.5 % (36.0-46.0)
[2020-10-19 22:16] LABS: Hemoglobin 8.5 g/dL (12.2-16.2); Mean Corpuscular Hgb Conc. 34.5 g/dL (32.0-36.0); Mean Corpuscular Volume 92.7 fL (80.0-100.0); Platelet Count (auto) 50 10^3/uL (140-450); Red Blood Cells 2.64 10^6/uL (4.0-5.20); White Blood Cell 19.3 10^3/uL (4.4-10.8)
[2020-10-19 22:36] LABS: Red Cell Distribution Width 24.1 % (11.8-14.3)
[2020-10-19 22:37] LABS: Basophils % (manual) 0 (0.0-2.0); Blast Cells 0; Eosinophils % (manual) 0 (0-7); Promyelocytes % 0; Reactive Lymphocytes 0
[2020-10-20] MEDS ORDERED: cloNIDine HCL 0.1 MG TAB ONE (00:31)
[2020-10-20] MEDS ORDERED: PROPRANOLOL HCL 20 MG TAB ONE ×2 (00:31→07:00)
[2020-10-20] MEDS ORDERED: SODIUM BICARBONATE 650 MG TAB ONE (00:31)
[2020-10-20] MEDS ORDERED: DexAMETHasone 4 MG TAB ONE (00:31)
[2020-10-20] MEDS: DexAMETHasone SOD PHOS 4 MG/1ML SDV INJ IV SCH ×3 (00:41→21:49)
[2020-10-20] MEDS: SODIUM BICARBONATE 650 MG TAB PO SCH ×3 (00:41→21:49)
[2020-10-20] MEDS: PROPRANOLOL HCL 20 MG TAB PO SCH ×4 (00:42→21:49)
[2020-10-20] MEDS: cloNIDine HCL 0.1 MG TAB PO SCH ×3 (00:42→21:49)
[2020-10-20 01:16] LABS: Band Neutrophils % (manual) 2; Monocytes % (manual) 10 (0-12); Myelocytes % 2
[2020-10-20 01:18] LABS: Lymphocytes % (manual) 16 (10.0-50.0); Metamyelocytes % 3
[2020-10-20] MEDS: SODIUM BICARBONATE 50ML VIAL 75 ML in SOD CHL 0.45% 1,000 ML IV SCH (02:35)
[2020-10-20] MEDS: BUDESONIDE (INHALATION) 180 MCG IH IN SCH ×2 (06:10→18:37)
[2020-10-20 07:10] LABS: Hematocrit 22.6 % (36.0-46.0); Hemoglobin 7.8 g/dL (12.2-16.2); Mean Corpuscular Hemoglobin 31.5 pg (28.0-32.0); Mean Corpuscular Hgb Conc. 34.3 g/dL (32.0-36.0); Mean Corpuscular Volume 91.9 fL (80.0-100.0); Platelet Count (auto) 43 10^3/uL (140-450); Red Blood Cells 2.46 10^6/uL (4.0-5.20); Red Cell Distribution Width 26.1 % (11.8-14.3)
[2020-10-20 07:21] LABS: Basophils % (manual) 0 (0.0-2.0); Blast Cells 0; Eosinophils % (manual) 0 (0-7); Promyelocytes % 0; Reactive Lymphocytes 0
[2020-10-20 07:30] LABS: Potassium 4.1 mmol/L (3.5-5.1)
[2020-10-20 07:50] LABS: BUN/Creatinine Ratio 5.7; Bilirubin, Total 1.2 mg/dL (0.2-1.0); Calcium 8.4 mg/dL (8.5-10.1); Total Protein 5.8 g/dL (6.4-8.2)
[2020-10-20] MEDS: CALCIUM ACETATE 667 MG CAP PO SCH ×3 (09:08→18:05)
[2020-10-20] MEDS: ONDANSETRON HCL 4 MG/2 ML VIAL IV PRN (09:14)
[2020-10-20 09:37] LABS: Band Neutrophils % (manual) 11; Lymphocytes % (manual) 8 (10.0-50.0); Metamyelocytes % 4; Monocytes % (manual) 7 (0-12); Myelocytes % 1
[2020-10-20 10:14] LABS: Basophils # (auto) 0 10 ^3/uL (0-0.2); Basophils % (auto) 0.2 % (0.0-2.0); Eosinophils # (auto) 0 10 ^3/uL (0-0.8); Neutrophils % (auto) 81.4 % (37.0-80.0); Red Blood Cells 2.43 10^6/uL (4.0-5.20)
[2020-10-20 10:17] LABS: Hematocrit 22.4 % (36.0-46.0); Hemoglobin 7.7 g/dL (12.2-16.2); Lymphocytes # (auto) 1.2 10 ^3/uL (0.4-5.4); Lymphocytes % (auto) 8.6 % (10.0-50.0); Mean Corpuscular Hemoglobin 31.5 pg (28.0-32.0); Mean Corpuscular Hgb Conc. 34.2 g/dL (32.0-36.0); Mean Corpuscular Volume 92.3 fL (80.0-100.0); Monocytes # (auto) 1.4 10 ^3/uL (0-1.3); Monocytes % (auto) 9.8 % (0.0-12.0); Neutrophils # (auto) 11.7 10 ^3/uL (1.6-8.6); Platelet Count (auto) 40 10^3/uL (140-450); Red Cell Distribution Width 26.5 % (11.8-14.3)
[2020-10-20] MEDS: ZINC SULFATE 220mg CAP or TAB PO SCH (10:36)
[2020-10-20] MEDS: CHOLECALCIFEROL (VITD3) 2,000 UNIT CAP/TAB PO SCH (10:36)
[2020-10-20] MEDS: ASCORBIC ACID 1,000 MG TAB PO SCH (10:36)
[2020-10-20] MEDS: amLODIPine BESYLATE 5 MG TAB PO SCH (10:38)
[2020-10-20 11:24] LABS: White Blood Cell 14.4 10^3/uL (4.4-10.8)
[2020-10-20] MEDS: ALBUTEROL SULF HFA 90MCG INH 200DOSE IN PRN (18:37)
[2020-10-20] MEDS: CALCIUM GLUC IV SCH (21:25)
[2020-10-20] MEDS: SODIUM CHL 0.9% IV SCH (21:25)
[2020-10-20 22:27] LABS: Hemoglobin 7.8 g/dL (12.2-16.2); Mean Corpuscular Hgb Conc. 34.2 g/dL (32.0-36.0)
[2020-10-20 22:28] LABS: Hematocrit 22.7 % (36.0-46.0); Mean Corpuscular Hemoglobin 32.1 pg (28.0-32.0); Platelet Count (auto) 47 10^3/uL (140-450); Red Blood Cells 2.41 10^6/uL (4.0-5.20); White Blood Cell 15.9 10^3/uL (4.4-10.8)
[2020-10-20 22:49] LABS: Red Cell Distribution Width 27.8 % (11.8-14.3)
[2020-10-20 22:51] LABS: Basophils % (manual) 0 (0.0-2.0); Blast Cells 0; Eosinophils % (manual) 0 (0-7); Promyelocytes % 0; Reactive Lymphocytes 0
[2020-10-21 04:10] LABS: Band Neutrophils % (manual) 1; Lymphocytes % (manual) 11 (10.0-50.0)
[2020-10-21 04:14] LABS: Metamyelocytes % 2; Monocytes % (manual) 8 (0-12); Myelocytes % 1
[2020-10-21] MEDS: ACETAMINOPHEN 500 MG TAB PO PRN (05:03)
[2020-10-21] MEDS: PROPRANOLOL HCL 20 MG TAB PO SCH ×3 (05:57→22:00)
[2020-10-21 06:50] LABS: Potassium 3.9 mmol/L (3.5-5.1)
[2020-10-21 07:17] LABS: Albumin 3.5 g/dL (3.4-5.0); BUN/Creatinine Ratio 6.3; Bilirubin, Total 1.2 mg/dL (0.2-1.0); Calcium 8.4 mg/dL (8.5-10.1); Total Protein 6.5 g/dL (6.4-8.2)
[2020-10-21] MEDS: CALCIUM ACETATE 667 MG CAP PO SCH ×3 (08:00→18:00)
[2020-10-21] MEDS ORDERED: HEPARIN SOD 1000 UNIT/ML IV ONE (08:30)
[2020-10-21] MEDS: ONDANSETRON HCL 4 MG/2 ML VIAL IV PRN ×2 (08:52→19:10)
[2020-10-21] MEDS: CALCIUM GLUC IV SCH (10:00)
[2020-10-21] MEDS: BUDESONIDE (INHALATION) 180 MCG IH IN SCH ×2 (10:00→19:00)
[2020-10-21] MEDS: SODIUM CHL 0.9% IV SCH (10:00)
[2020-10-21] MEDS: SODIUM BICARBONATE 650 MG TAB PO SCH ×3 (10:00→23:00)
[2020-10-21] MEDS: ASCORBIC ACID 1,000 MG TAB PO SCH (11:07)
[2020-10-21] MEDS: DexAMETHasone SOD PHOS 4 MG/1ML SDV INJ IV SCH ×4 (11:07→23:00)
[2020-10-21] MEDS: CHOLECALCIFEROL (VITD3) 2,000 UNIT CAP/TAB PO SCH (11:08)
[2020-10-21] MEDS: ZINC SULFATE 220mg CAP or TAB PO SCH (11:08)
[2020-10-21] MEDS: cloNIDine HCL 0.1 MG TAB PO SCH ×2 (11:09→23:00)
[2020-10-21] MEDS: amLODIPine BESYLATE 5 MG TAB PO SCH (11:09)
[2020-10-21] MEDS: ALBUTEROL SULF HFA 90MCG INH 200DOSE IN PRN ×2 (11:46→19:00)
[2020-10-21] MEDS ORDERED: HYDR12.56 PO (14:13)
[2020-10-21] MEDS ORDERED: AMLO-489 PO (14:13)
[2020-10-21 15:17] LABS: Eosinophils # (auto) 0 10 ^3/uL (0-0.8)
[2020-10-21 15:19] LABS: Basophils # (auto) 0 10 ^3/uL (0-0.2); Basophils % (auto) 0.2 % (0.0-2.0); Hematocrit 22.1 % (36.0-46.0); Hemoglobin 7.4 g/dL (12.2-16.2); Lymphocytes % (auto) 5.3 % (10.0-50.0); Mean Corpuscular Hemoglobin 31.5 pg (28.0-32.0); Mean Corpuscular Hgb Conc. 33.4 g/dL (32.0-36.0); Mean Corpuscular Volume 94.2 fL (80.0-100.0); Monocytes # (auto) 1.8 10 ^3/uL (0-1.3); Monocytes % (auto) 9.4 % (0.0-12.0); Neutrophils # (auto) 16.3 10 ^3/uL (1.6-8.6); Neutrophils % (auto) 85.1 % (37.0-80.0); Platelet Count (auto) 47 10^3/uL (140-450); Red Blood Cells 2.35 10^6/uL (4.0-5.20); White Blood Cell 19.2 10^3/uL (4.4-10.8)
[2020-10-21 15:23] LABS: Nucleated Red Blood Cells % 5.4 %; Red Cell Distribution Width 27.7 % (11.8-14.3)
[2020-10-21] MEDS: levoFLOXacin 250MG 50 ML IV SCH (18:25)
[2020-10-21 21:53] LABS: Hematocrit 21.2 % (36.0-46.0); Hemoglobin 7.5 g/dL (12.2-16.2); Mean Corpuscular Hemoglobin 33.2 pg (28.0-32.0); Mean Corpuscular Hgb Conc. 35.2 g/dL (32.0-36.0); Mean Corpuscular Volume 94.2 fL (80.0-100.0); Platelet Count (auto) 69 10^3/uL (140-450); Red Blood Cells 2.25 10^6/uL (4.0-5.20); White Blood Cell 17.3 10^3/uL (4.4-10.8)
[2020-10-21 21:55] LABS: Red Cell Distribution Width 29.3 % (11.8-14.3)
[2020-10-21 21:56] LABS: Basophils % (manual) 0 (0.0-2.0); Blast Cells 0; Eosinophils % (manual) 0 (0-7); Metamyelocytes % 0; Myelocytes % 0; Promyelocytes % 0; Reactive Lymphocytes 0
[2020-10-21 22:23] LABS: Band Neutrophils % (manual) 6; Lymphocytes % (manual) 8 (10.0-50.0); Monocytes % (manual) 10 (0-12)
[2020-10-21 22:42] LABS: Protein, Urine 190.9 mg/dL (0.0-11.9)
[2020-10-22] VITALS (19 sets, daily range): BP systolic 117–153; BP diastolic 71–89
[2020-10-22] MEDS: ALBUTEROL SULF HFA 90MCG INH 200DOSE IN PRN ×2 (06:35→19:59)
[2020-10-22] MEDS: BUDESONIDE (INHALATION) 180 MCG IH IN SCH ×2 (06:35→19:59)
[2020-10-22] MEDS: DexAMETHasone SOD PHOS 4 MG/1ML SDV INJ IV SCH ×3 (06:56→22:27)
[2020-10-22] MEDS: PROPRANOLOL HCL 20 MG TAB PO SCH ×3 (06:56→22:27)
[2020-10-22] MEDS: ONDANSETRON HCL 4 MG/2 ML VIAL IV PRN ×2 (07:12→22:27)
[2020-10-22] MEDS: CALCIUM ACETATE 667 MG CAP PO SCH ×3 (08:00→18:26)
[2020-10-22 08:33] LABS: Potassium 4.2 mmol/L (3.5-5.1)
[2020-10-22 09:00] LABS: Albumin 3.3 g/dL (3.4-5.0); Total Protein 6.2 g/dL (6.4-8.2)
[2020-10-22 09:27] LABS: INR 1.11 (0.9-1.15); Partial Thromboplastin Time 22.2 sec (23.0-31.2)
[2020-10-22] MEDS: SODIUM BICARBONATE 650 MG TAB PO SCH ×2 (09:38→22:00)
[2020-10-22] MEDS: cloNIDine HCL 0.1 MG TAB PO SCH ×2 (09:38→22:27)
[2020-10-22] MEDS: ZINC SULFATE 220mg CAP or TAB PO SCH (09:38)
[2020-10-22] MEDS: CALCIUM GLUC IV SCH (09:39)
[2020-10-22] MEDS: amLODIPine BESYLATE 5 MG TAB PO SCH (09:39)
[2020-10-22] MEDS: ASCORBIC ACID 1,000 MG TAB PO SCH (09:39)
[2020-10-22] MEDS: CHOLECALCIFEROL (VITD3) 2,000 UNIT CAP/TAB PO SCH (09:39)
[2020-10-22] MEDS: SODIUM CHL 0.9% IV SCH (09:39)
[2020-10-22] MEDS ORDERED: LIDOCAINE 2%HCL (LOCAL ANESTH.) INJ 20ML MDV ONE (10:26)
[2020-10-22 10:35] LABS: Hematocrit 21.5 % (36.0-46.0); Hemoglobin 7.3 g/dL (12.2-16.2); Mean Corpuscular Hgb Conc. 34.2 g/dL (32.0-36.0); Mean Corpuscular Volume 96.7 fL (80.0-100.0); Platelet Count (auto) 113 10^3/uL (140-450); Red Blood Cells 2.22 10^6/uL (4.0-5.20); White Blood Cell 19.5 10^3/uL (4.4-10.8)
[2020-10-22 10:36] LABS: Red Cell Distribution Width 28.1 % (11.8-14.3)
[2020-10-22 10:38] LABS: Basophils % (manual) 0 (0.0-2.0); Blast Cells 0; Eosinophils % (manual) 0 (0-7); Promyelocytes % 0; Reactive Lymphocytes 0
[2020-10-22 12:09] LABS: Band Neutrophils % (manual) 3; Lymphocytes % (manual) 7 (10.0-50.0); Metamyelocytes % 5; Monocytes % (manual) 4 (0-12); Myelocytes % 2
[2020-10-22] MEDS ORDERED: MIDAZOLAM HCL 1MG/1ML-2 ML VIAL ONE (12:10)
[2020-10-22] MEDS ORDERED: fentaNYL CITRATE 100 MCG/2 ML VL ONE (12:11)
[2020-10-22] MEDS ORDERED: MIDAZOLAM HCL 1MG/1ML-2 ML VIAL IV ONE (12:15)
[2020-10-22] MEDS ORDERED: fentaNYL CITRATE 100 MCG/2 ML VL IV ONE (12:15)
[2020-10-22] MEDS: HYDROcodone-ACET 5/325MG TAB PO PRN ×2 (14:33→20:41)
[2020-10-22] MEDS ORDERED: EPINEPHrine HCL 1 MG/10 ML SYRG ONE (16:37)
[2020-10-22 22:52] LABS: Hematocrit 18.6 % (36.0-46.0); Mean Corpuscular Hemoglobin 32.9 pg (28.0-32.0)
[2020-10-22 22:53] LABS: Mean Corpuscular Hgb Conc. 34.4 g/dL (32.0-36.0); Mean Corpuscular Volume 95.6 fL (80.0-100.0); Platelet Count (auto) 96 10^3/uL (140-450); Red Blood Cells 1.94 10^6/uL (4.0-5.20)
[2020-10-22 22:56] LABS: Red Cell Distribution Width 28.5 % (11.8-14.3)
[2020-10-22 23:06] LABS: Hemoglobin 6.4 g/dL (12.2-16.2)
[2020-10-22 23:07] LABS: Basophils % (manual) 0 (0.0-2.0); Blast Cells 0; Eosinophils % (manual) 0 (0-7); Reactive Lymphocytes 0
[2020-10-22 23:18] LABS: Band Neutrophils % (manual) 11; Lymphocytes % (manual) 8 (10.0-50.0); Metamyelocytes % 3; Monocytes % (manual) 7 (0-12); Myelocytes % 4; Promyelocytes % 1
[2020-10-23] VITALS (10 sets, daily range): BP systolic 117–155; BP diastolic 76–94
[2020-10-23] MEDS: PROPRANOLOL HCL 20 MG TAB PO SCH ×3 (06:00→22:14)
[2020-10-23] MEDS: DexAMETHasone SOD PHOS 4 MG/1ML SDV INJ IV SCH ×3 (06:00→22:14)
[2020-10-23] MEDS: BUDESONIDE (INHALATION) 180 MCG IH IN SCH ×2 (07:35→20:27)
[2020-10-23] MEDS: CALCIUM ACETATE 667 MG CAP PO SCH ×3 (08:00→17:57)
[2020-10-23 08:06] LABS: Immunoglobulin G, Serum 729 mg/dL (586-1602)
[2020-10-23 09:52] LABS: Hemoglobin 8.3 g/dL (12.2-16.2); White Blood Cell 20.3 10^3/uL (4.4-10.8)
[2020-10-23 09:54] LABS: Hematocrit 23.4 % (36.0-46.0); Mean Corpuscular Hemoglobin 31.9 pg (28.0-32.0); Mean Corpuscular Hgb Conc. 35.2 g/dL (32.0-36.0); Mean Corpuscular Volume 90.5 fL (80.0-100.0); Platelet Count (auto) 86 10^3/uL (140-450); Red Blood Cells 2.59 10^6/uL (4.0-5.20)
[2020-10-23 10:00] LABS: Red Cell Distribution Width 30.4 % (11.8-14.3)
[2020-10-23] MEDS: SODIUM BICARBONATE 650 MG TAB PO SCH ×2 (10:00→22:00)
[2020-10-23] MEDS: CALCIUM GLUC IV SCH (10:00)
[2020-10-23] MEDS: SODIUM CHL 0.9% IV SCH (10:00)
[2020-10-23 10:01] LABS: Basophils % (manual) 0 (0.0-2.0); Blast Cells 0; Eosinophils % (manual) 0 (0-7); Reactive Lymphocytes 0
[2020-10-23 10:12] LABS: Albumin 3.5 g/dL (3.4-5.0); Calcium 7.7 mg/dL (8.5-10.1); Potassium 3.2 mmol/L (3.5-5.1)
[2020-10-23 10:16] LABS: Bilirubin, Total 1.3 mg/dL (0.2-1.0); Total Protein 6.4 g/dL (6.4-8.2)
[2020-10-23 10:27] LABS: Band Neutrophils % (manual) 5; Lymphocytes % (manual) 11 (10.0-50.0); Metamyelocytes % 1; Monocytes % (manual) 7 (0-12); Myelocytes % 1; Promyelocytes % 1
[2020-10-23] MEDS: cloNIDine HCL 0.1 MG TAB PO SCH ×2 (10:53→22:14)
[2020-10-23] MEDS: ZINC SULFATE 220mg CAP or TAB PO SCH (10:53)
[2020-10-23] MEDS: CHOLECALCIFEROL (VITD3) 2,000 UNIT CAP/TAB PO SCH (10:54)
[2020-10-23] MEDS: ONDANSETRON HCL 4 MG/2 ML VIAL IV PRN ×2 (10:54→22:16)
[2020-10-23] MEDS: amLODIPine BESYLATE 5 MG TAB PO SCH (10:54)
[2020-10-23] MEDS: ASCORBIC ACID 1,000 MG TAB PO SCH (10:54)
[2020-10-23] MEDS: levoFLOXacin 250MG 50 ML IV SCH (17:57)
[2020-10-23] MEDS: HYDROcodone-ACET 5/325MG TAB PO PRN (18:30)
[2020-10-23] MEDS: ALBUTEROL SULF HFA 90MCG INH 200DOSE IN PRN (20:27)
[2020-10-23] MEDS ORDERED: EPOETIN ALFA 10,000 UNIT/1 ML VIAL SC ONE (21:00)
[2020-10-23 23:37] LABS: Hematocrit 25.6 % (36.0-46.0); Hemoglobin 8.8 g/dL (12.2-16.2); Mean Corpuscular Hemoglobin 31.2 pg (28.0-32.0); Mean Corpuscular Hgb Conc. 34.2 g/dL (32.0-36.0); Mean Corpuscular Volume 91.3 fL (80.0-100.0); Platelet Count (auto) 91 10^3/uL (140-450); Red Blood Cells 2.81 10^6/uL (4.0-5.20); White Blood Cell 16.1 10^3/uL (4.4-10.8)
[2020-10-23 23:44] LABS: Red Cell Distribution Width 27.4 % (11.8-14.3)
[2020-10-23 23:46] LABS: Basophils % (manual) 0 (0.0-2.0); Blast Cells 0; Eosinophils % (manual) 0 (0-7); Metamyelocytes % 0; Promyelocytes % 0; Reactive Lymphocytes 0
[2020-10-24] VITALS: BP 111/68
[2020-10-24] MEDS: HYDROcodone-ACET 5/325MG TAB PO PRN (00:33)
[2020-10-24 01:50] LABS: Band Neutrophils % (manual) 11; Lymphocytes % (manual) 11 (10.0-50.0); Monocytes % (manual) 6 (0-12); Myelocytes % 2
[2020-10-24] MEDS: DexAMETHasone SOD PHOS 4 MG/1ML SDV INJ IV SCH ×3 (06:51→21:29)
[2020-10-24] MEDS: PROPRANOLOL HCL 20 MG TAB PO SCH ×3 (06:51→21:30)
[2020-10-24] MEDS: BUDESONIDE (INHALATION) 180 MCG IH IN SCH ×2 (06:52→22:00)
[2020-10-24] MEDS: ALBUTEROL SULF HFA 90MCG INH 200DOSE IN PRN ×2 (06:52→22:29)
[2020-10-24 07:52] VITALS: BP 136/77
[2020-10-24] MEDS: CALCIUM ACETATE 667 MG CAP PO SCH ×3 (08:16→18:13)
[2020-10-24] MEDS: SODIUM CHL 0.9% IV SCH (09:21)
[2020-10-24] MEDS: CALCIUM GLUC IV SCH (09:21)
[2020-10-24] MEDS: SODIUM BICARBONATE 650 MG TAB PO SCH ×2 (09:22→21:30)
[2020-10-24] MEDS: ZINC SULFATE 220mg CAP or TAB PO SCH (09:22)
[2020-10-24] MEDS: cloNIDine HCL 0.1 MG TAB PO SCH ×2 (09:22→21:29)
[2020-10-24] MEDS: ASCORBIC ACID 1,000 MG TAB PO SCH (09:23)
[2020-10-24] MEDS: amLODIPine BESYLATE 5 MG TAB PO SCH (09:23)
[2020-10-24] MEDS: ONDANSETRON HCL 4 MG/2 ML VIAL IV PRN (09:23)
[2020-10-24] MEDS: CHOLECALCIFEROL (VITD3) 2,000 UNIT CAP/TAB PO SCH (09:23)
[2020-10-24 10:54] LABS: Hematocrit 27.3 % (36.0-46.0); Hemoglobin 9.2 g/dL (12.2-16.2); Mean Corpuscular Hemoglobin 31.5 pg (28.0-32.0); Mean Corpuscular Hgb Conc. 33.8 g/dL (32.0-36.0); Mean Corpuscular Volume 93.1 fL (80.0-100.0); Platelet Count (auto) 70 10^3/uL (140-450); Red Blood Cells 2.94 10^6/uL (4.0-5.20); White Blood Cell 17.1 10^3/uL (4.4-10.8)
[2020-10-24 10:56] LABS: Red Cell Distribution Width 27.9 % (11.8-14.3)
[2020-10-24 10:58] LABS: Basophils % (manual) 0 (0.0-2.0); Blast Cells 0; Eosinophils % (manual) 0 (0-7); Promyelocytes % 0; Reactive Lymphocytes 0
[2020-10-24 13:58] LABS: Monocytes % (manual) 6 (0-12)
[2020-10-24 13:59] LABS: Band Neutrophils % (manual) 6; Metamyelocytes % 1; Myelocytes % 3
[2020-10-24 14:00] LABS: Lymphocytes % (manual) 4 (10.0-50.0)
[2020-10-24] MEDS ORDERED: HYOSCYAMINE SULF 0.125 MG ODT TAB PO PRN (14:30)
[2020-10-24 15:36] VITALS: BP 128/70
[2020-10-24] MEDS: METOCLOPRAMIDE HCL 5MG/ml INJ 2ml VIAL IV PRN (21:30)
[2020-10-24] MEDS: MORPHINE SULF INJ 2 MG/ML SYRINGE 1ML IV PRN (21:30)
[2020-10-24 23:05] LABS: Hematocrit 26.5 % (36.0-46.0); Hemoglobin 9.3 g/dL (12.2-16.2); Mean Corpuscular Hemoglobin 32.4 pg (28.0-32.0); Mean Corpuscular Hgb Conc. 35.2 g/dL (32.0-36.0); Platelet Count (auto) 70 10^3/uL (140-450); Red Blood Cells 2.88 10^6/uL (4.0-5.20); White Blood Cell 19.2 10^3/uL (4.4-10.8)
[2020-10-24 23:12] LABS: Red Cell Distribution Width 27.3 % (11.8-14.3)
[2020-10-24 23:26] LABS: Band Neutrophils % (manual) 0; Basophils % (manual) 0 (0.0-2.0); Blast Cells 0; Eosinophils % (manual) 0 (0-7); Promyelocytes % 0; Reactive Lymphocytes 0
[2020-10-24 23:29] LABS: Lymphocytes % (manual) 5 (10.0-50.0); Metamyelocytes % 1; Monocytes % (manual) 2 (0-12); Myelocytes % 1
[2020-10-25] VITALS: BP 127/74
[2020-10-25] MEDS: METOCLOPRAMIDE HCL 5MG/ml INJ 2ml VIAL IV PRN (06:39)
[2020-10-25] MEDS: DexAMETHasone SOD PHOS 4 MG/1ML SDV INJ IV SCH ×3 (06:39→22:08)
[2020-10-25] MEDS: PROPRANOLOL HCL 20 MG TAB PO SCH ×3 (06:39→22:25)
[2020-10-25] MEDS: BUDESONIDE (INHALATION) 180 MCG IH IN SCH ×2 (07:10→20:17)
[2020-10-25 08:00] VITALS: BP 125/73
[2020-10-25] MEDS: CALCIUM ACETATE 667 MG CAP PO SCH ×3 (08:00→18:16)
[2020-10-25] MEDS: SODIUM CHL 0.9% IV SCH (09:11)
[2020-10-25] MEDS: ZINC SULFATE 220mg CAP or TAB PO SCH (09:11)
[2020-10-25] MEDS: PANTOPRAZOLE 40 MG/10 ML VIAL INJ IV SCH (09:11)
[2020-10-25] MEDS: CALCIUM GLUC IV SCH (09:11)
[2020-10-25] MEDS: SODIUM BICARBONATE 650 MG TAB PO SCH ×2 (09:11→22:00)
[2020-10-25] MEDS: cloNIDine HCL 0.1 MG TAB PO SCH ×2 (09:12→22:25)
[2020-10-25] MEDS: ASCORBIC ACID 1,000 MG TAB PO SCH (09:12)
[2020-10-25] MEDS: amLODIPine BESYLATE 5 MG TAB PO SCH (09:12)
[2020-10-25] MEDS: CHOLECALCIFEROL (VITD3) 2,000 UNIT CAP/TAB PO SCH (09:13)
[2020-10-25 09:16] LABS: Hemoglobin 9.1 g/dL (12.2-16.2)
[2020-10-25 09:18] LABS: Hematocrit 26.4 % (36.0-46.0); Mean Corpuscular Hemoglobin 31.9 pg (28.0-32.0); Mean Corpuscular Hgb Conc. 34.4 g/dL (32.0-36.0); Mean Corpuscular Volume 92.6 fL (80.0-100.0); Platelet Count (auto) 69 10^3/uL (140-450); Red Blood Cells 2.85 10^6/uL (4.0-5.20); White Blood Cell 16.8 10^3/uL (4.4-10.8)
[2020-10-25 09:32] LABS: Red Cell Distribution Width 27.1 % (11.8-14.3)
[2020-10-25 09:34] LABS: Basophils % (manual) 0 (0.0-2.0); Blast Cells 0; Eosinophils % (manual) 0 (0-7); INR 1.06 (0.9-1.15); Partial Thromboplastin Time 24.6 sec (23.0-31.2); Promyelocytes % 0; Reactive Lymphocytes 0
[2020-10-25 09:39] LABS: Magnesium 2.6 mg/dL (1.6-2.6); Potassium 3.9 mmol/L (3.5-5.1)
[2020-10-25 09:56] LABS: Albumin 3.3 g/dL (3.4-5.0); BUN/Creatinine Ratio 8.4; Bilirubin, Total 0.8 mg/dL (0.2-1.0); Calcium 7.8 mg/dL (8.5-10.1); Phosphorus 8.5 mg/dL (2.5-4.90); Total Protein 5.9 g/dL (6.4-8.2)
[2020-10-25 13:31] LABS: Band Neutrophils % (manual) 1; Lymphocytes % (manual) 4 (10.0-50.0); Metamyelocytes % 2; Monocytes % (manual) 8 (0-12); Myelocytes % 1
[2020-10-25 16:00] VITALS: BP 126/67
[2020-10-25] MEDS: levoFLOXacin 250MG 50 ML IV SCH (18:16)
[2020-10-25] MEDS: ALBUTEROL SULF HFA 90MCG INH 200DOSE IN PRN (20:17)
[2020-10-25 22:11] LABS: Hematocrit 26.3 % (36.0-46.0); Hemoglobin 9.1 g/dL (12.2-16.2); Mean Corpuscular Hemoglobin 32.2 pg (28.0-32.0); Mean Corpuscular Hgb Conc. 34.7 g/dL (32.0-36.0); Mean Corpuscular Volume 92.8 fL (80.0-100.0); Platelet Count (auto) 53 10^3/uL (140-450); Red Blood Cells 2.84 10^6/uL (4.0-5.20); Red Cell Distribution Width 26.4 % (11.8-14.3); White Blood Cell 15.2 10^3/uL (4.4-10.8)
[2020-10-25 22:15] LABS: Basophils % (manual) 0 (0.0-2.0); Blast Cells 0; Eosinophils % (manual) 0 (0-7); Promyelocytes % 0; Reactive Lymphocytes 0
[2020-10-25 22:25] VITALS: BP 136/82
[2020-10-25 22:54] LABS: Band Neutrophils % (manual) 5; Lymphocytes % (manual) 5 (10.0-50.0); Metamyelocytes % 1; Monocytes % (manual) 2 (0-12); Myelocytes % 1
[2020-10-26] VITALS: BP 122/74
[2020-10-26] MEDS: PROPRANOLOL HCL 20 MG TAB PO SCH ×3 (06:00→21:23)
[2020-10-26] MEDS: DexAMETHasone SOD PHOS 4 MG/1ML SDV INJ IV SCH ×3 (06:00→21:23)
[2020-10-26] MEDS: METOCLOPRAMIDE HCL 5MG/ml INJ 2ml VIAL IV PRN (06:53)
[2020-10-26] MEDS: BUDESONIDE (INHALATION) 180 MCG IH IN SCH ×2 (07:55→21:17)
[2020-10-26 08:00] VITALS: BP 138/65
[2020-10-26] MEDS: CALCIUM ACETATE 667 MG CAP PO SCH ×3 (08:00→17:04)
[2020-10-26 08:26] VITALS: BP 138/65
[2020-10-26] MEDS: PANTOPRAZOLE 40 MG/10 ML VIAL INJ IV SCH (09:48)
[2020-10-26 09:49] LABS: Hematocrit 30.3 % (36.0-46.0); Hemoglobin 10.4 g/dL (12.2-16.2); Mean Corpuscular Hemoglobin 31.2 pg (28.0-32.0); Mean Corpuscular Hgb Conc. 34.3 g/dL (32.0-36.0); Mean Corpuscular Volume 90.8 fL (80.0-100.0); Platelet Count (auto) 67 10^3/uL (140-450); Red Blood Cells 3.33 10^6/uL (4.0-5.20); White Blood Cell 20.7 10^3/uL (4.4-10.8)
[2020-10-26] MEDS: cloNIDine HCL 0.1 MG TAB PO SCH ×2 (09:49→21:23)
[2020-10-26] MEDS: ZINC SULFATE 220mg CAP or TAB PO SCH (09:49)
[2020-10-26] MEDS: ASCORBIC ACID 1,000 MG TAB PO SCH (09:50)
[2020-10-26] MEDS: amLODIPine BESYLATE 5 MG TAB PO SCH (09:50)
[2020-10-26] MEDS: CHOLECALCIFEROL (VITD3) 2,000 UNIT CAP/TAB PO SCH (09:51)
[2020-10-26 09:55] LABS: Red Cell Distribution Width 26.1 % (11.8-14.3)
[2020-10-26 09:56] LABS: Basophils % (manual) 0 (0.0-2.0); Blast Cells 0; Eosinophils % (manual) 0 (0-7); Promyelocytes % 0; Reactive Lymphocytes 0
[2020-10-26] MEDS: SODIUM BICARBONATE 650 MG TAB PO SCH ×2 (10:00→21:22)
[2020-10-26 11:27] LABS: Band Neutrophils % (manual) 2; Lymphocytes % (manual) 6 (10.0-50.0); Metamyelocytes % 3; Monocytes % (manual) 2 (0-12); Myelocytes % 1
[2020-10-26 16:00] VITALS: BP 139/87
[2020-10-26] MEDS ORDERED: EPOETIN ALFA 10,000 UNIT/1 ML VIAL SC ONE (21:00)
[2020-10-26] MEDS: ALBUTEROL SULF HFA 90MCG INH 200DOSE IN PRN (21:17)
[2020-10-26 21:51] LABS: Hemoglobin 8.9 g/dL (12.2-16.2); Mean Corpuscular Hemoglobin 32.2 pg (28.0-32.0); Red Blood Cells 2.77 10^6/uL (4.0-5.20); White Blood Cell 15.9 10^3/uL (4.4-10.8)
[2020-10-26 21:52] LABS: Hematocrit 25.7 % (36.0-46.0); Mean Corpuscular Hgb Conc. 34.6 g/dL (32.0-36.0); Mean Corpuscular Volume 93.1 fL (80.0-100.0); Platelet Count (auto) 54 10^3/uL (140-450); Red Cell Distribution Width 25.9 % (11.8-14.3)
[2020-10-26 22:05] LABS: Basophils % (manual) 0 (0.0-2.0); Blast Cells 0; Eosinophils % (manual) 0 (0-7); Metamyelocytes % 0; Myelocytes % 0; Promyelocytes % 0; Reactive Lymphocytes 0
[2020-10-27] VITALS: BP 131/84
[2020-10-27 00:08] LABS: Band Neutrophils % (manual) 5; Lymphocytes % (manual) 4 (10.0-50.0); Monocytes % (manual) 7 (0-12)
[2020-10-27] MEDS: DexAMETHasone SOD PHOS 4 MG/1ML SDV INJ IV SCH ×2 (06:24→22:25)
[2020-10-27] MEDS: PROPRANOLOL HCL 20 MG TAB PO SCH ×3 (06:26→22:26)
[2020-10-27 08:00] VITALS: BP 138/89
[2020-10-27] MEDS ORDERED: HYDROmorphone HCL 2 MG/ML VL IV PRN (08:15)
[2020-10-27] MEDS: SODIUM BICARBONATE 650 MG TAB PO SCH ×2 (10:00→22:00)
[2020-10-27] MEDS: cloNIDine HCL 0.1 MG TAB PO SCH ×2 (10:00→22:26)
[2020-10-27] MEDS: PANTOPRAZOLE 40 MG/10 ML VIAL INJ IV SCH (10:08)
[2020-10-27] MEDS: CALCIUM ACETATE 667 MG CAP PO SCH ×3 (10:08→16:37)
[2020-10-27] MEDS: CHOLECALCIFEROL (VITD3) 2,000 UNIT CAP/TAB PO SCH (10:09)
[2020-10-27] MEDS: amLODIPine BESYLATE 5 MG TAB PO SCH (10:09)
[2020-10-27] MEDS: ASCORBIC ACID 1,000 MG TAB PO SCH (10:09)
[2020-10-27] MEDS: ZINC SULFATE 220mg CAP or TAB PO SCH (10:09)
[2020-10-27 10:43] LABS: Hematocrit 27.4 % (36.0-46.0); Hemoglobin 9.5 g/dL (12.2-16.2); Mean Corpuscular Hemoglobin 32.2 pg (28.0-32.0); Mean Corpuscular Hgb Conc. 34.7 g/dL (32.0-36.0); Mean Corpuscular Volume 92.8 fL (80.0-100.0); Platelet Count (auto) 54 10^3/uL (140-450); Red Blood Cells 2.96 10^6/uL (4.0-5.20); White Blood Cell 18.6 10^3/uL (4.4-10.8)
[2020-10-27 10:45] LABS: Red Cell Distribution Width 25.4 % (11.8-14.3)
[2020-10-27 10:46] LABS: Basophils % (manual) 0 (0.0-2.0); Blast Cells 0; Eosinophils % (manual) 0 (0-7); Promyelocytes % 0; Reactive Lymphocytes 0
[2020-10-27 11:10] LABS: Calcium 7.4 mg/dL (8.5-10.1); Potassium 3.9 mmol/L (3.5-5.1)
[2020-10-27 11:16] LABS: Band Neutrophils % (manual) 4; Lymphocytes % (manual) 5 (10.0-50.0); Metamyelocytes % 1; Monocytes % (manual) 3 (0-12); Myelocytes % 1
[2020-10-27 11:29] LABS: BUN/Creatinine Ratio 8.9
[2020-10-27 16:00] VITALS: BP 139/103
[2020-10-27] MEDS: BUDESONIDE (INHALATION) 180 MCG IH IN SCH ×2 (16:09→21:00)
[2020-10-27] MEDS: levoFLOXacin 250MG 50 ML IV SCH (16:37)
[2020-10-27] MEDS: ALBUTEROL SULF HFA 90MCG INH 200DOSE IN PRN (21:00)
[2020-10-27] MEDS: METOCLOPRAMIDE HCL 5MG/ml INJ 2ml VIAL IV PRN ×2 (22:00→22:27)
[2020-10-27 22:18] LABS: Eosinophils # (auto) 0 10 ^3/uL (0-0.8); Eosinophils % (auto) 0.1 % (0.0-7.0); Red Blood Cells 2.97 10^6/uL (4.0-5.20)
[2020-10-27 22:21] LABS: Basophils # (auto) 0 10 ^3/uL (0-0.2); Basophils % (auto) 0.1 % (0.0-2.0); Hematocrit 27.4 % (36.0-46.0); Hemoglobin 9.5 g/dL (12.2-16.2); Lymphocytes # (auto) 0.7 10 ^3/uL (0.4-5.4); Lymphocytes % (auto) 3.1 % (10.0-50.0); Mean Corpuscular Hgb Conc. 34.6 g/dL (32.0-36.0); Mean Corpuscular Volume 92.5 fL (80.0-100.0); Monocytes # (auto) 3.3 10 ^3/uL (0-1.3); Monocytes % (auto) 15.8 % (0.0-12.0); Neutrophils % (auto) 80.9 % (37.0-80.0); Nucleated Red Blood Cells % 0.9 %; Platelet Count (auto) 50 10^3/uL (140-450); White Blood Cell 21.1 10^3/uL (4.4-10.8)
[2020-10-27 22:46] LABS: Red Cell Distribution Width 24.8 % (11.8-14.3)
[2020-10-28] VITALS: BP 148/99
[2020-10-28] MEDS: PROPRANOLOL HCL 20 MG TAB PO SCH ×3 (05:32→21:58)
[2020-10-28 08:00] VITALS: BP 135/87
[2020-10-28 08:01] LABS: Calcium 7.4 mg/dL (8.5-10.1)
[2020-10-28 09:36] LABS: Hemoglobin 8.6 g/dL (12.2-16.2); White Blood Cell 18.5 10^3/uL (4.4-10.8)
[2020-10-28 09:38] LABS: Hematocrit 25.3 % (36.0-46.0); Mean Corpuscular Hemoglobin 31.9 pg (28.0-32.0); Mean Corpuscular Hgb Conc. 34.2 g/dL (32.0-36.0); Mean Corpuscular Volume 93.2 fL (80.0-100.0); Platelet Count (auto) 51 10^3/uL (140-450); Red Blood Cells 2.71 10^6/uL (4.0-5.20)
[2020-10-28 09:53] LABS: Red Cell Distribution Width 24.6 % (11.8-14.3)
[2020-10-28 09:54] LABS: Basophils % (manual) 0 (0.0-2.0); Blast Cells 0; Eosinophils % (manual) 0 (0-7); Promyelocytes % 0; Reactive Lymphocytes 0
[2020-10-28] MEDS: amLODIPine BESYLATE 5 MG TAB PO SCH (09:57)
[2020-10-28] MEDS: CHOLECALCIFEROL (VITD3) 2,000 UNIT CAP/TAB PO SCH (09:57)
[2020-10-28] MEDS: cloNIDine HCL 0.1 MG TAB PO SCH ×2 (09:58→21:58)
[2020-10-28] MEDS: CALCIUM ACETATE 667 MG CAP PO SCH ×3 (09:58→18:53)
[2020-10-28] MEDS: ENOXAPARIN SOD 30 MG/0.3 ML SYRINGE SC SCH (09:59)
[2020-10-28] MEDS: DexAMETHasone SOD PHOS 4 MG/1ML SDV INJ IV SCH ×2 (09:59→21:57)
[2020-10-28] MEDS: FAMOTIDINE 20 MG TAB PO SCH (10:00)
[2020-10-28] MEDS: SODIUM BICARBONATE 650 MG TAB PO SCH ×2 (10:00→21:59)
[2020-10-28] MEDS: BUDESONIDE (INHALATION) 180 MCG IH IN SCH ×2 (10:00→20:33)
[2020-10-28 11:20] LABS: Band Neutrophils % (manual) 3; Lymphocytes % (manual) 1 (10.0-50.0); Metamyelocytes % 3; Monocytes % (manual) 8 (0-12); Myelocytes % 1
[2020-10-28] MEDS: ALBUTEROL SULF HFA 90MCG INH 200DOSE IN PRN ×2 (13:19→20:34)
[2020-10-28 16:00] VITALS: BP 139/83
[2020-10-28 22:44] LABS: Hematocrit 24.8 % (36.0-46.0); Hemoglobin 8.6 g/dL (12.2-16.2); Mean Corpuscular Hemoglobin 33.3 pg (28.0-32.0); Mean Corpuscular Hgb Conc. 34.6 g/dL (32.0-36.0); Mean Corpuscular Volume 96.4 fL (80.0-100.0); Platelet Count (auto) 42 10^3/uL (140-450); Red Blood Cells 2.58 10^6/uL (4.0-5.20); White Blood Cell 17.7 10^3/uL (4.4-10.8)
[2020-10-28 22:57] LABS: Red Cell Distribution Width 25.5 % (11.8-14.3)
[2020-10-28 22:59] LABS: Basophils % (manual) 0 (0.0-2.0); Blast Cells 0; Eosinophils % (manual) 0 (0-7); Promyelocytes % 0; Reactive Lymphocytes 0
[2020-10-28 23:54] VITALS: BP 128/89
[2020-10-29 00:26] LABS: Band Neutrophils % (manual) 4; Lymphocytes % (manual) 9 (10.0-50.0); Metamyelocytes % 1; Monocytes % (manual) 6 (0-12); Myelocytes % 1
[2020-10-29] MEDS: PROPRANOLOL HCL 20 MG TAB PO SCH ×3 (06:47→21:34)
[2020-10-29] MEDS: ALBUTEROL SULF HFA 90MCG INH 200DOSE IN PRN ×3 (07:30→19:59)
[2020-10-29] MEDS: BUDESONIDE (INHALATION) 180 MCG IH IN SCH ×2 (07:30→19:59)
[2020-10-29 07:51] LABS: Potassium 3.7 mmol/L (3.5-5.1)
[2020-10-29 07:53] LABS: BUN/Creatinine Ratio 7.7
[2020-10-29 08:00] VITALS: BP 132/83
[2020-10-29] MEDS: ACETAMINOPHEN 500 MG TAB PO PRN ×3 (09:30→20:03)
[2020-10-29] MEDS: ENOXAPARIN SOD 30 MG/0.3 ML SYRINGE SC SCH (10:00)
[2020-10-29] MEDS: SODIUM BICARBONATE 650 MG TAB PO SCH ×2 (10:00→21:34)
[2020-10-29 10:11] LABS: Hematocrit 24.5 % (36.0-46.0); Hemoglobin 8.3 g/dL (12.2-16.2); Mean Corpuscular Hemoglobin 32.2 pg (28.0-32.0); Mean Corpuscular Volume 94.6 fL (80.0-100.0); Platelet Count (auto) 40 10^3/uL (140-450); Red Blood Cells 2.59 10^6/uL (4.0-5.20); White Blood Cell 18.8 10^3/uL (4.4-10.8)
[2020-10-29 10:20] LABS: Red Cell Distribution Width 24.4 % (11.8-14.3)
[2020-10-29 10:21] LABS: Basophils % (manual) 0 (0.0-2.0); Blast Cells 0; Eosinophils % (manual) 0 (0-7); Promyelocytes % 0; Reactive Lymphocytes 0
[2020-10-29 10:48] LABS: Urine Bacteria FEW /hpf (None Seen); Urine Blood 3+ /uL (Negative); Urine Specific Gravity 1.009 (1.001-1.035); Urine WBC 17 /hpf (0 - 5)
[2020-10-29 11:17] LABS: Band Neutrophils % (manual) 2; Lymphocytes % (manual) 3 (10.0-50.0); Metamyelocytes % 4; Monocytes % (manual) 8 (0-12); Myelocytes % 1
[2020-10-29] MEDS: CALCIUM ACETATE 667 MG CAP PO SCH ×3 (12:00→18:39)
[2020-10-29] MEDS: cloNIDine HCL 0.1 MG TAB PO SCH ×2 (13:18→21:33)
[2020-10-29] MEDS: DexAMETHasone SOD PHOS 4 MG/1ML SDV INJ IV SCH ×2 (13:18→21:32)
[2020-10-29] MEDS: amLODIPine BESYLATE 5 MG TAB PO SCH (13:19)
[2020-10-29] MEDS: FAMOTIDINE 20 MG TAB PO SCH (13:19)
[2020-10-29] MEDS: CHOLECALCIFEROL (VITD3) 2,000 UNIT CAP/TAB PO SCH (13:19)
[2020-10-29] MEDS ORDERED: ERTAPENEM SOD INJ 0.5 GM in SODIUM CHL 0.9% 50 ML IV ONE (14:00)
[2020-10-29] MEDS: MEROPENEM 500MG IVPB 50 ML IV SCH (15:25)
[2020-10-29 16:00] VITALS: BP 139/88
[2020-10-29 23:16] LABS: Hemoglobin 8.3 g/dL (12.2-16.2); Platelet Count (auto) 32 10^3/uL (140-450); White Blood Cell 18.4 10^3/uL (4.4-10.8)
[2020-10-29 23:18] LABS: Hematocrit 24.5 % (36.0-46.0); Mean Corpuscular Hgb Conc. 33.8 g/dL (32.0-36.0); Mean Corpuscular Volume 94.6 fL (80.0-100.0); Red Blood Cells 2.59 10^6/uL (4.0-5.20)
[2020-10-29 23:27] LABS: Basophils % (manual) 0 (0.0-2.0); Blast Cells 0; Promyelocytes % 0; Reactive Lymphocytes 0; Red Cell Distribution Width 24.4 % (11.8-14.3)
[2020-10-30] VITALS: BP 141/92
[2020-10-30] MEDS: MORPHINE SULF INJ 2 MG/ML SYRINGE 1ML IV PRN (00:28)
[2020-10-30 00:48] LABS: Band Neutrophils % (manual) 6; Eosinophils % (manual) 1 (0-7); Monocytes % (manual) 5 (0-12)
[2020-10-30 00:50] LABS: Lymphocytes % (manual) 4 (10.0-50.0); Metamyelocytes % 2; Myelocytes % 1
[2020-10-30] MEDS: PROPRANOLOL HCL 20 MG TAB PO SCH ×2 (06:00→13:15)
[2020-10-30] MEDS: ALBUTEROL SULF HFA 90MCG INH 200DOSE IN PRN ×2 (06:30→08:36)
[2020-10-30] MEDS: BUDESONIDE (INHALATION) 180 MCG IH IN SCH (06:30)
[2020-10-30 06:43] LABS: BUN/Creatinine Ratio 7.5; Calcium 7.4 mg/dL (8.5-10.1); Potassium 3.9 mmol/L (3.5-5.1)
[2020-10-30] MEDS: ACETAMINOPHEN 500 MG TAB PO PRN (06:53)
[2020-10-30 08:00] VITALS: BP 146/99
[2020-10-30 09:52] LABS: Hematocrit 26.3 % (36.0-46.0); Hemoglobin 8.8 g/dL (12.2-16.2); Mean Corpuscular Hemoglobin 32.1 pg (28.0-32.0); Mean Corpuscular Hgb Conc. 33.5 g/dL (32.0-36.0); Mean Corpuscular Volume 95.9 fL (80.0-100.0); Platelet Count (auto) 36 10^3/uL (140-450); Red Blood Cells 2.75 10^6/uL (4.0-5.20); White Blood Cell 17.6 10^3/uL (4.4-10.8)
[2020-10-30 09:53] LABS: Red Cell Distribution Width 23.7 % (11.8-14.3)
[2020-10-30 09:54] LABS: Band Neutrophils % (manual) 0; Basophils % (manual) 0 (0.0-2.0); Blast Cells 0; Eosinophils % (manual) 0 (0-7); Metamyelocytes % 0; Myelocytes % 0; Promyelocytes % 0; Reactive Lymphocytes 0
[2020-10-30] MEDS ORDERED: ERTAPENEM SOD INJ 0.5 GM in SODIUM CHL 0.9% 50 ML IV SCH (10:00)
[2020-10-30 10:11] LABS: Lymphocytes % (manual) 4 (10.0-50.0); Monocytes % (manual) 10 (0-12)
[2020-10-30] MEDS: cloNIDine HCL 0.1 MG TAB PO SCH (10:30)
[2020-10-30] MEDS: CHOLECALCIFEROL (VITD3) 2,000 UNIT CAP/TAB PO SCH (10:30)
[2020-10-30] MEDS: SODIUM BICARBONATE 650 MG TAB PO SCH (10:30)
[2020-10-30] MEDS: FAMOTIDINE 20 MG TAB PO SCH (10:30)
[2020-10-30] MEDS: amLODIPine BESYLATE 5 MG TAB PO SCH (10:30)
[2020-10-30] MEDS: DexAMETHasone SOD PHOS 4 MG/1ML SDV INJ IV SCH (10:30)
[2020-10-30] MEDS: CALCIUM ACETATE 667 MG CAP PO SCH ×2 (10:30→12:55)
[2020-10-30] MEDS ORDERED: DOXYCYCLINE 100 MG TAB/CAP PO ONE (12:45)
[2020-10-30 16:00] VITALS: BP 143/93
[2020-10-30] MEDS: MEROPENEM 500MG IVPB 50 ML IV SCH (16:15)
[2020-10-30] MEDS ORDERED: HEPARIN SODIUM (PORCINE) 5000 UNITS/ML 1ML VIAL SC ONE (16:30)
[2020-10-30] MEDS ORDERED: HEPARIN SODIUM (PORCINE) 5000 UNITS/ML 1ML VIAL ONE ×2 (16:52→16:54)
[2020-10-30] MEDS ORDERED: DOXYCYCLINE 100 MG TAB/CAP PO SCH (22:00)
== END 2020-10-30 17:16 | disposition short-term general hospital (02) | DRG 720 ==
LOC: ER 11:42 → TELE 18:11 → TELE-WESTW 10-21 13:37
PROVIDERS: ADMIT Nurse Practitioner Acute Care; ATTEND Internal Medicine Nephrology
PROC: 30233N1 Transfusion of Nonautologous Red Blood Cells into Peripheral Vein, Percutaneous Approach (ICD-10-PCS; 2020-10-15)
PROC: 30233R1 Transfusion of Nonautologous Platelets into Peripheral Vein, Percutaneous Approach (ICD-10-PCS; 2020-10-15)
PROC: 02HV33Z Insertion of Infusion Device into Superior Vena Cava, Percutaneous Approach (ICD-10-PCS; 2020-10-16)
PROC: B5181ZA Fluoroscopy of Superior Vena Cava using Low Osmolar Contrast, Guidance (ICD-10-PCS; 2020-10-16)
PROC: B548ZZA Ultrasonography of Superior Vena Cava, Guidance (ICD-10-PCS; 2020-10-16)
PROC: 02H633Z Insertion of Infusion Device into Right Atrium, Percutaneous Approach (ICD-10-PCS; 2020-10-16)
PROC: 30233K1 Transfusion of Nonautologous Frozen Plasma into Peripheral Vein, Percutaneous Approach (ICD-10-PCS; 2020-10-18)
PROC: 5A1D70Z Performance of Urinary Filtration, Intermittent, Less than 6 Hours Per Day (ICD-10-PCS; 2020-10-19)
PROC: 5A1D70Z Performance of Urinary Filtration, Intermittent, Less than 6 Hours Per Day (ICD-10-PCS; 2020-10-21)
PROC: 0TB13ZX Excision of Left Kidney, Percutaneous Approach, Diagnostic (ICD-10-PCS; principal; 2020-10-22)
PROC: 5A1D70Z Performance of Urinary Filtration, Intermittent, Less than 6 Hours Per Day (ICD-10-PCS; 2020-10-23)
PROC: 5A1D70Z Performance of Urinary Filtration, Intermittent, Less than 6 Hours Per Day (ICD-10-PCS; 2020-10-26)
PROC: 07DQ3ZX Extraction of Sternum Bone Marrow, Percutaneous Approach, Diagnostic (ICD-10-PCS; 2020-10-27)
PROC: 5A1D70Z Performance of Urinary Filtration, Intermittent, Less than 6 Hours Per Day (ICD-10-PCS; 2020-10-28)
PROC: 05HC33Z Insertion of Infusion Device into Left Basilic Vein, Percutaneous Approach (ICD-10-PCS; 2020-10-28)
PROC: B54NZZA Ultrasonography of Left Upper Extremity Veins, Guidance (ICD-10-PCS; 2020-10-28)
PROC: 5A1D70Z Performance of Urinary Filtration, Intermittent, Less than 6 Hours Per Day (ICD-10-PCS; 2020-10-30)
DX: A41.89 Other specified sepsis (principal); U07.1 COVID-19; J12.82 Pneumonia due to coronavirus disease 2019; N18.6 End stage renal disease; E87.1 Hypo-osmolality and hyponatremia; E66.9 Obesity, unspecified; I67.83 Posterior reversible encephalopathy syndrome; E55.9 Vitamin D deficiency, unspecified; I12.0 Hypertensive chronic kidney disease with stage 5 chronic kidney disease or end stage renal disease; E78.5 Hyperlipidemia, unspecified; M31.1 Thrombotic microangiopathy; I16.1 Hypertensive emergency; G93.40 Encephalopathy, unspecified; D64.9 Anemia, unspecified; B37.49 Other urogenital candidiasis; D35.2 Benign neoplasm of pituitary gland; F17.210 Nicotine dependence, cigarettes, uncomplicated; I82.C11 Acute embolism and thrombosis of right internal jugular vein; T38.0X5A Adverse effect of glucocorticoids and synthetic analogues, initial encounter; Z16.12 Extended spectrum beta lactamase (ESBL) resistance; E87.6 Hypokalemia; G43.109 Migraine with aura, not intractable, without status migrainosus; H53.8 Other visual disturbances; E03.9 Hypothyroidism, unspecified; N17.0 Acute kidney failure with tubular necrosis; R80.9 Proteinuria, unspecified; K85.90 Acute pancreatitis without necrosis or infection, unspecified; Z68.34 Body mass index [BMI] 34.0-34.9, adult; Y92.89 Other specified places as the place of occurrence of the external cause; Z82.49 Family history of ischemic heart disease and other diseases of the circulatory system; I21.A1 Myocardial infarction type 2
CPT/HCPCS: 10022; 36415; 36514; 70450; 70490; 70551; 71045; 71250; 74150; 74176; 76775; 76856; 76942; 77012; 80048; 80053; 81001; 82088; 82150; 82270; 82306; 82533; 82550; 82570; 82607; 82784; 83001; 83010; 83021; 83516; 83520; 83540; 83550; 83615; 83690; 83735; 83835; 83874; 83880; 83970; 84100; 84146; 84155; 84156; 84165; 84244; 84300; 84425; 84439; 84443; 84484; 84702; 85007; 85014; 85018; 85025; 85027; 85045; 85379; 85610; 85613; 85652; 85660; 85670; 85705; 85730; 85732; 86038; 86141; 86147; 86160; 86200; 86225; 86235; 86256; 86334; 86703; 86803; 86850; 86880; 86900; 86901; 86920; 87040; 87086; 87088; 87186; 87205; 87340; 87426; 87804; 90935; 93005; 93306; 93970; 93971; 93975; 93976; 94640; 96361; 96374; 96375; 99291; C9113; G0378; J0696; J0885; J1100; J1335; J1642; J1956; J2185; J2250; J2405; J3490; J7060

== ENCOUNTER 2020-11-08 15:12 | Inpatient (IN) | payer MEDICAID ==
[~2020-11-08] VITALS: Ht 167.6 cm; Wt 81.6 kg
[~2020-11-08 15:12] MED LIST changes: +AMLO-489 PO; +HYDR12.56 PO; -IOHEXOL 300 MG/ML 100ML BOTTLE IJ ONE
[2020-11-08 16:30] LABS: Basophils % (auto) 0.5 % (0.0-2.0); Eosinophils # (auto) 0.1 10 ^3/uL (0-0.8); Hemoglobin 7.4 g/dL (12.2-16.2)
[2020-11-08 16:32] LABS: Basophils # (auto) 0 10 ^3/uL (0-0.2); Hematocrit 22.3 % (36.0-46.0); Lymphocytes % (auto) 9.6 % (10.0-50.0); Mean Corpuscular Hemoglobin 32.5 pg (28.0-32.0); Mean Corpuscular Hgb Conc. 33.2 g/dL (32.0-36.0); Mean Corpuscular Volume 97.7 fL (80.0-100.0); Monocytes # (auto) 0.9 10 ^3/uL (0-1.3); Monocytes % (auto) 9.3 % (0.0-12.0); Neutrophils % (auto) 79.6 % (37.0-80.0); Nucleated Red Blood Cells % 0.7 %; Platelet Count (auto) 28 10^3/uL (140-450); Red Blood Cells 2.28 10^6/uL (4.0-5.20); Red Cell Distribution Width 20.9 % (11.8-14.3); White Blood Cell 10.1 10^3/uL (4.4-10.8)
[2020-11-08 16:38] LABS: Albumin 3.2 g/dL (3.4-5.0); Calcium 8.3 mg/dL (8.5-10.1); Magnesium 1.6 mg/dL (1.6-2.6); Partial Thromboplastin Time 26.9 sec (23.0-31.2); Potassium 3.9 mmol/L (3.5-5.1)
[2020-11-08 16:42] LABS: BUN/Creatinine Ratio 7.1; Bilirubin, Total 0.8 mg/dL (0.2-1.0); Total Protein 6.3 g/dL (6.4-8.2)
[2020-11-08] MEDS ORDERED: ONDANSETRON HCL 4 MG/2 ML VIAL IV ONE (17:30)
[2020-11-08] MEDS ORDERED: MORPHINE SULF INJ 2 MG/ML SYRINGE 1ML IV ONE (17:30)
[2020-11-08] MEDS ORDERED: hydrALAZINE HCL 20 MG/ML VL IV ONE (17:30)
[2020-11-08] MEDS ORDERED: ACETAMINOPHEN 325 MG TAB PO ONE (18:00)
[2020-11-08] MEDS ORDERED: AZITHROMYCIN 500MG/ 250ML 250 ML IV ONE (18:15)
[2020-11-08] MEDS ORDERED: MORPHINE SULF INJ 2 MG/ML SYRINGE 1ML IV PRN (20:45)
[2020-11-08] MEDS ORDERED: TEMAZEPAM 15 MG CAP PO PRN (20:45)
[2020-11-08] MEDS ORDERED: ACETAMINOPHEN 325 MG TAB PO PRN (20:45)
[2020-11-08] MEDS ORDERED: ONDANSETRON HCL 4 MG/2 ML VIAL IV PRN (20:45)
[2020-11-08] MEDS ORDERED: NITROGLYCERIN 0.4 MG SL TAB SL PRN (20:45)
[2020-11-08] MEDS: cloNIDine HCL 0.1 MG TAB PO PRN (21:04)
[2020-11-08] MEDS: ASCORBIC ACID 500 MG TAB PO SCH (21:25)
[2020-11-08] MEDS ORDERED: LABETALOL HCL 5 MG/ML 4ML SYRINGE IV ONE (22:00)
[2020-11-08 22:24] LABS: Urine Bacteria FEW /hpf (None Seen); Urine Blood 3+ /uL (Negative); Urine Specific Gravity 1.008 (1.001-1.035); Urine WBC 3 /hpf (0 - 5)
[2020-11-09 01:30] LABS: Albumin 3.1 g/dL (3.4-5.0); BUN/Creatinine Ratio 6.8; Calcium 8.7 mg/dL (8.5-10.1); Potassium 3.9 mmol/L (3.5-5.1)
[2020-11-09 01:35] LABS: Bilirubin, Total 0.8 mg/dL (0.2-1.0); Total Protein 5.9 g/dL (6.4-8.2)
[2020-11-09 03:30] VITALS: BP 209/129
[2020-11-09] MEDS: cloNIDine HCL 0.1 MG TAB PO PRN ×2 (03:43→11:16)
[2020-11-09 03:45] VITALS: BP 202/127
[2020-11-09 05:26] LABS: Basophils # (auto) 0 10 ^3/uL (0-0.2); Eosinophils # (auto) 0.1 10 ^3/uL (0-0.8); Lymphocytes # (auto) 0.9 10 ^3/uL (0.4-5.4); Monocytes # (auto) 0.8 10 ^3/uL (0-1.3); Platelet Count (auto) 33 10^3/uL (140-450); White Blood Cell 8.8 10^3/uL (4.4-10.8)
[2020-11-09 05:28] LABS: Basophils % (auto) 0.5 % (0.0-2.0); Eosinophils % (auto) 0.9 % (0.0-7.0); Hematocrit 21.5 % (36.0-46.0); Hemoglobin 7.1 g/dL (12.2-16.2); Lymphocytes % (auto) 10.1 % (10.0-50.0); Mean Corpuscular Hemoglobin 32.5 pg (28.0-32.0); Mean Corpuscular Hgb Conc. 33.3 g/dL (32.0-36.0); Mean Corpuscular Volume 97.8 fL (80.0-100.0); Monocytes % (auto) 8.7 % (0.0-12.0); Neutrophils % (auto) 79.8 % (37.0-80.0); Red Cell Distribution Width 20.7 % (11.8-14.3)
[2020-11-09 05:35] VITALS: BP 211/117
[2020-11-09] MEDS ORDERED: hydrALAZINE HCL 20 MG/ML VL IV ONE ×2 (05:45→11:30)
[2020-11-09 05:50] VITALS: BP 217/118
[2020-11-09 08:22] VITALS: BP 178/113
[2020-11-09] MEDS ORDERED: cefTRIAXone 1GM/50ML D5W 50 ML IV SCH (09:00)
[2020-11-09] MEDS: hydrALAZINE HCL 10 MG TAB PO SCH ×2 (09:39→14:20)
[2020-11-09] MEDS: ASCORBIC ACID 500 MG TAB PO SCH (09:41)
[2020-11-09] MEDS ORDERED: AZITHROMYCIN 500MG/ 250ML 250 ML IV SCH (10:00)
[2020-11-09] MEDS ORDERED: NIFEdipine ER 30 MG TAB PO SCH (10:00)
[2020-11-09] MEDS ORDERED: MAGNESIUM OXIDE 400 MG TAB PO ONE (10:00)
[2020-11-09] MEDS ORDERED: METOPROLOL SUCCINATE XL 50 MG TAB PO SCH ×2 (10:00)
[2020-11-09] MEDS ORDERED: HCTZ 25 MG TAB PO SCH (10:00)
[2020-11-09] MEDS ORDERED: ASPirin 81 mg TAB PO SCH (10:00)
[2020-11-09] MEDS ORDERED: ZINC SULFATE 220mg CAP or TAB PO SCH (10:00)
[2020-11-09] MEDS ORDERED: LABETALOL HCL 5 MG/ML 4ML SYRINGE IV ONE (11:30)
[2020-11-09 14:00] VITALS: BP 149/103
[2020-11-10] MEDS ORDERED: NIFEdipine ER 30 MG TAB PO SCH (10:00)
== END 2020-11-09 16:37 | disposition left against medical advice (07) | DRG 190 ==
LOC: ER 15:12 → TELE 20:32
PROVIDERS: ADMIT Nurse Practitioner; ATTEND Internal Medicine Pulmonary Disease
PROC: 30233R1 Transfusion of Nonautologous Platelets into Peripheral Vein, Percutaneous Approach (ICD-10-PCS; principal; 2020-11-09)
PROC: 30233N1 Transfusion of Nonautologous Red Blood Cells into Peripheral Vein, Percutaneous Approach (ICD-10-PCS; 2020-11-09)
DX: I21.4 Non-ST elevation (NSTEMI) myocardial infarction (principal); J96.01 Acute respiratory failure with hypoxia; N17.9 Acute kidney failure, unspecified; J18.9 Pneumonia, unspecified organism; D69.6 Thrombocytopenia, unspecified; N18.6 End stage renal disease; I12.0 Hypertensive chronic kidney disease with stage 5 chronic kidney disease or end stage renal disease; Z20.822 Contact with and (suspected) exposure to COVID-19; D64.9 Anemia, unspecified; N39.0 Urinary tract infection, site not specified; E66.9 Obesity, unspecified; E78.5 Hyperlipidemia, unspecified; F17.210 Nicotine dependence, cigarettes, uncomplicated; F41.9 Anxiety disorder, unspecified; E87.6 Hypokalemia; Z53.29 Procedure and treatment not carried out because of patient's decision for other reasons; R79.89 Other specified abnormal findings of blood chemistry; Z82.49 Family history of ischemic heart disease and other diseases of the circulatory system; Z87.01 Personal history of pneumonia (recurrent); Z99.2 Dependence on renal dialysis; Z68.29 Body mass index [BMI] 29.0-29.9, adult
CPT/HCPCS: 36415; 71045; 76700; 80053; 81001; 81025; 82728; 83605; 83735; 83880; 84484; 84702; 85025; 85379; 85610; 85730; 86850; 86900; 86901; 86920; 87040; 87426; 93005; 96365; 96367; 96368; 96375; 96376; 99291; G0378; J0696; J2405; J3490

== ENCOUNTER 2021-02-07 02:04 | Inpatient (IN) | payer MEDICAID ==
[2021-02-07] VITALS (41 sets, daily range): BP systolic 136–186; BP diastolic 88–125
[~2021-02-07] VITALS: Ht 160 cm; Wt 68.4 kg
[~2021-02-07 02:04] MED LIST changes: -AMLO-489 PO; -HYDR12.56 PO; +LEVO-28 PO; +METR500T PO; +ONDA-144 PO
[2021-02-07] MEDS ORDERED: ALBUTEROL SULF 2.5 MG/0.5ML(0.5%) NEB SOLN NEB ONE (02:45)
[2021-02-07] MEDS ORDERED: IPRATROPIUM BROM 0.5 MG/2.5ML INH SOL NEB ONE ×2 (02:45→10:00)
[2021-02-07] MEDS: NITROGLYCERIN 50MG/250ML 250 ML IV SCH ×2 (03:34→03:59)
[2021-02-07] MEDS ORDERED: hydrALAZINE HCL 20 MG/ML VL IV ONE (06:45)
[2021-02-07] MEDS ORDERED: SODIUM CHLORIDE 0.9% 1,000 ML IV ONE (07:30)
[2021-02-07 07:43] LABS: Basophils # (auto) 0.1 10 ^3/uL (0-0.2); Basophils % (auto) 0.9 % (0.0-2.0); Eosinophils # (auto) 0.1 10 ^3/uL (0-0.8); Hematocrit 28.9 % (36.0-46.0); Hemoglobin 9.3 g/dL (12.2-16.2); Lymphocytes # (auto) 1.4 10 ^3/uL (0.4-5.4); Lymphocytes % (auto) 16.2 % (10.0-50.0); Mean Corpuscular Hemoglobin 27.8 pg (28.0-32.0); Mean Corpuscular Hgb Conc. 32.1 g/dL (32.0-36.0); Mean Corpuscular Volume 86.6 fL (80.0-100.0); Monocytes # (auto) 0.5 10 ^3/uL (0-1.3); Monocytes % (auto) 5.7 % (0.0-12.0); Neutrophils # (auto) 6.8 10 ^3/uL (1.6-8.6); Neutrophils % (auto) 76.2 % (37.0-80.0); Nucleated Red Blood Cells % 0.2 %; Platelet Count (auto) 184 10^3/uL (140-450); Red Blood Cells 3.34 10^6/uL (4.0-5.20); Red Cell Distribution Width 18.2 % (11.8-14.3); White Blood Cell 8.9 10^3/uL (4.4-10.8)
[2021-02-07] MEDS ORDERED: LORazepam 2MG/ML-1ML VIAL IV ONE (08:00)
[2021-02-07 08:10] LABS: Albumin 3.7 g/dL (3.4-5.0); BUN/Creatinine Ratio 3.2; Calcium 9.3 mg/dL (8.5-10.1); Magnesium 2.2 mg/dL (1.6-2.6); Potassium 3.5 mmol/L (3.5-5.1)
[2021-02-07 08:15] LABS: Bilirubin, Total 0.6 mg/dL (0.2-1.0); Total Protein 7.2 g/dL (6.4-8.2)
[2021-02-07 08:39] LABS: Beta HCG, Quantitative < 1 mlU/mL (1-3)
[2021-02-07] MEDS ORDERED: NITROGLYCERIN 0.4 MG SL TAB SL PRN ×2 (09:00→09:15)
[2021-02-07] MEDS ORDERED: MORPHINE SULF INJ 2 MG/ML SYRINGE 1ML IV PRN ×3 (09:00→09:15)
[2021-02-07] MEDS ORDERED: FUROSEMIDE 100 MG/10ML VIAL IV ONE (09:15)
[2021-02-07] MEDS ORDERED: HYDROcodone-ACET 5/325MG TAB PO PRN (09:15)
[2021-02-07] MEDS ORDERED: LORazepam 0.5 MG TAB PO PRN (09:15)
[2021-02-07] MEDS ORDERED: CEFEPIME 1 GM in SODIUM CHL 0.9% 50 ML IV ONE (09:15)
[2021-02-07] MEDS ORDERED: ALUM & MAG HYDROX-SIMETH LIQ(MAALOX) 30 ML PO PRN (09:15)
[2021-02-07] MEDS ORDERED: ACETAMINOPHEN 325 MG TAB PO PRN (09:15)
[2021-02-07] MEDS ORDERED: DOCUSATE SOD 100 MG CAP PO PRN (09:15)
[2021-02-07] MEDS ORDERED: LABETALOL HCL 5 MG/ML 4ML SYRINGE IV ONE (09:15)
[2021-02-07] MEDS ORDERED: ENOXAPARIN SOD 100 MG/1 ML SYRINGE SC ONE (09:30)
[2021-02-07 09:40] LABS: Cholesterol 305 mg/dL (< 200); HDL Cholesterol 54 mg/dL (40-59); LDL Cholesterol 205 mg/dL (< 100); Triglycerides 141 mg/dL (< 150)
[2021-02-07] MEDS ORDERED: CHOLECALCIFEROL (VITD3) 2,000 UNIT CAP/TAB PO ONE (10:00)
[2021-02-07] MEDS ORDERED: hydrALAZINE HCL 20 MG/ML VL IV PRN (10:00)
[2021-02-07] MEDS ORDERED: IPRATROPIUM BROM 0.5 MG/2.5ML INH SOL NEB PRN (10:00)
[2021-02-07] MEDS ORDERED: METOPROLOL SUCCINATE XL 50 MG TAB PO SCH (10:00)
[2021-02-07] MEDS ORDERED: CEFEPIME 0.5 GM in SODIUM CHL 0.9% 50 ML IV SCH (10:00)
[2021-02-07] MEDS ORDERED: guaiFENesin 200 MG/10 ML UD PO PRN (11:30)
[2021-02-07] MEDS: methylPREDNISolone SOD SUCC 40 MG/ML VL IV SCH ×2 (13:36→22:00)
[2021-02-07] MEDS: hydrALAZINE HCL 25 MG TAB PO SCH ×2 (15:00→23:48)
[2021-02-07] MEDS: ONDANSETRON HCL 4 MG/2 ML VIAL IV PRN ×2 (15:33→22:41)
[2021-02-07] MEDS: FUROSEMIDE 40 MG/4 ML VIAL IV SCH (17:47)
[2021-02-07] MEDS ORDERED: EPOETIN ALFA-EPBX 10,000 UNIT/1ML VIAL SC ONE (21:00)
[2021-02-08] VITALS (33 sets, daily range): BP systolic 125–188; BP diastolic 82–133
[2021-02-08 03:54] LABS: Basophils # (auto) 0 10 ^3/uL (0-0.2); Basophils % (auto) 0.1 % (0.0-2.0); Eosinophils # (auto) 0 10 ^3/uL (0-0.8); Hematocrit 29.5 % (36.0-46.0); Hemoglobin 9.5 g/dL (12.2-16.2); Lymphocytes # (auto) 0.5 10 ^3/uL (0.4-5.4); Lymphocytes % (auto) 4.5 % (10.0-50.0); Mean Corpuscular Hemoglobin 27.5 pg (28.0-32.0); Mean Corpuscular Hgb Conc. 32.3 g/dL (32.0-36.0); Mean Corpuscular Volume 85.3 fL (80.0-100.0); Monocytes # (auto) 0.3 10 ^3/uL (0-1.3); Monocytes % (auto) 2.3 % (0.0-12.0); Neutrophils # (auto) 10.2 10 ^3/uL (1.6-8.6); Neutrophils % (auto) 93.1 % (37.0-80.0); Nucleated Red Blood Cells % 0.2 %; Platelet Count (auto) 203 10^3/uL (140-450); Red Blood Cells 3.46 10^6/uL (4.0-5.20); Red Cell Distribution Width 18.3 % (11.8-14.3)
[2021-02-08 04:02] LABS: Albumin 3.7 g/dL (3.4-5.0); Calcium 9.1 mg/dL (8.5-10.1); INR 1.07 (0.9-1.15); Magnesium 2.2 mg/dL (1.6-2.6); Partial Thromboplastin Time 30.8 sec (23.0-31.2); Potassium 3.7 mmol/L (3.5-5.1)
[2021-02-08 04:07] LABS: BUN/Creatinine Ratio 2.9; Bilirubin, Total 0.8 mg/dL (0.2-1.0); Phosphorus 2.2 mg/dL (2.5-4.90); Total Protein 7.3 g/dL (6.4-8.2)
[2021-02-08] MEDS: FUROSEMIDE 40 MG/4 ML VIAL IV SCH (06:00)
[2021-02-08] MEDS: methylPREDNISolone SOD SUCC 40 MG/ML VL IV SCH (06:00)
[2021-02-08] MEDS: hydrALAZINE HCL 25 MG TAB PO SCH (06:00)
[2021-02-08] MEDS ORDERED: CHOLECALCIFEROL (VITD3) 2,000 UNIT CAP/TAB PO SCH (10:00)
[2021-02-08] MEDS ORDERED: CEFEPIME 0.5 GM in SODIUM CHL 0.9% 50 ML IV SCH (10:00)
[2021-02-08] MEDS ORDERED: LABETALOL HCL 200 MG TAB PO SCH (10:15)
[2021-02-08] MEDS ORDERED: amLODIPine BESYLATE 5 MG TAB PO SCH (10:30)
[2021-02-08] MEDS: ONDANSETRON HCL 4 MG/2 ML VIAL IV PRN (10:41)
[2021-02-08] MEDS ORDERED: NIFEdipine ER 30 MG TAB PO ONE (11:15)
[2021-02-08] MEDS ORDERED: CARVEDILOL 12.5 MG TAB PO SCH (12:45)
[2021-02-08] MEDS ORDERED: hydrALAZINE HCL 25 MG TAB PO SCH (14:00)
[2021-02-08] MEDS ORDERED: HYDR-4298 PO (15:17)
[2021-02-08] MEDS ORDERED: CARV25TA PO (15:17)
[2021-02-08] MEDS ORDERED: NIFE90TA49 PO (15:17)
[2021-02-09] MEDS ORDERED: SODIUM CHL 0.9% 1000 ML BAG XX ONE (07:00)
[2021-02-09] MEDS ORDERED: NIFEdipine ER 30 MG TAB PO SCH (10:00)
[2021-02-09] MEDS ORDERED: EPOETIN ALFA-EPBX 10,000 UNIT/1ML VIAL SC ONE (21:00)
== END 2021-02-08 17:10 | disposition home or self-care (01) | DRG 194 ==
LOC: ER 02:04 → ICU WEST 09:12
PROVIDERS: ADMIT Hospitalist; ATTEND Internal Medicine
PROC: 5A1D70Z Performance of Urinary Filtration, Intermittent, Less than 6 Hours Per Day (ICD-10-PCS; principal; 2021-02-07)
DX: I13.2 Hypertensive heart and chronic kidney disease with heart failure and with stage 5 chronic kidney disease, or end stage renal disease (principal); J96.01 Acute respiratory failure with hypoxia; D69.6 Thrombocytopenia, unspecified; N18.6 End stage renal disease; G62.9 Polyneuropathy, unspecified; J44.1 Chronic obstructive pulmonary disease with (acute) exacerbation; I16.1 Hypertensive emergency; I50.33 Acute on chronic diastolic (congestive) heart failure; Z20.822 Contact with and (suspected) exposure to COVID-19; J45.901 Unspecified asthma with (acute) exacerbation; F41.9 Anxiety disorder, unspecified; D63.1 Anemia in chronic kidney disease
CPT/HCPCS: 36415; 36600; 71045; 80053; 80061; 82805; 83036; 83605; 83735; 83880; 84100; 84443; 84484; 84702; 85025; 85610; 85730; 87040; 87081; 87426; 90935; 93005; 94640; 96372; 96374; 96375; G0378; J1642; J2405; J3490

== ENCOUNTER 2021-04-11 13:32 | Inpatient (IN) | payer MEDICARE, MEDICAID ==
[~2021-04-11] VITALS: Ht 166.9 cm; Wt 68.0 kg
[~2021-04-11 13:32] MED LIST changes: +CARV25TA PO; +HYDR-4298 PO; -LEVO-28 PO; -METR500T PO; +NIFE90TA49 PO; -ONDA-144 PO
[2021-04-11] MEDS ORDERED: LORazepam 2MG/ML-1ML VIAL ONE (13:53)
[2021-04-11] MEDS ORDERED: LORazepam 2MG/ML-1ML VIAL IV ONE (14:45)
[2021-04-11 14:50] LABS: Hematocrit 38.8 % (36.0-46.0); Hemoglobin 12.1 g/dL (12.2-16.2); Mean Corpuscular Hemoglobin 27.1 pg (28.0-32.0); Mean Corpuscular Hgb Conc. 31.3 g/dL (32.0-36.0); Mean Corpuscular Volume 86.6 fL (80.0-100.0); Red Blood Cells 4.48 10^6/uL (4.0-5.20); Red Cell Distribution Width 18.9 % (11.8-14.3); White Blood Cell 8.7 10^3/uL (4.4-10.8)
[2021-04-11 14:52] LABS: Basophils % (manual) 0 (0.0-2.0); Blast Cells 0; Metamyelocytes % 0; Myelocytes % 0; Promyelocytes % 0; Reactive Lymphocytes 0
[2021-04-11 15:10] LABS: Albumin 3.7 g/dL (3.4-5.0); BUN/Creatinine Ratio 5.6; Calcium 8.9 mg/dL (8.5-10.1); Magnesium 3.2 mg/dL (1.6-2.6); Potassium 4.3 mmol/L (3.5-5.1)
[2021-04-11 15:12] LABS: Bilirubin, Total 0.4 mg/dL (0.2-1.0); Total Protein 6.5 g/dL (6.4-8.2)
[2021-04-11 15:23] LABS: Band Neutrophils % (manual) 2; Eosinophils % (manual) 1 (0-7); Lymphocytes % (manual) 19 (10.0-50.0); Monocytes % (manual) 2 (0-12)
[2021-04-11] MEDS ORDERED: hydrALAZINE HCL 20 MG/ML VL IV ONE ×2 (15:30→16:45)
[2021-04-11] MEDS ORDERED: ONDANSETRON HCL 4 MG/2 ML VIAL ONE (16:57)
[2021-04-11] MEDS ORDERED: CLON0.1T PO (17:09)
[2021-04-11] MEDS ORDERED: ONDANSETRON HCL 4 MG/2 ML VIAL IV ONE (17:15)
[2021-04-11] MEDS ORDERED: LORazepam 2MG/ML-1ML VIAL IV PRN (17:45)
[2021-04-11] MEDS ORDERED: ACETAMINOPHEN 500 MG TAB PO PRN (17:45)
[2021-04-11] MEDS ORDERED: MORPHINE SULF INJ 2 MG/ML SYRINGE 1ML IV PRN ×2 (17:45)
[2021-04-11] MEDS ORDERED: NITROGLYCERIN 0.4 MG SL TAB SL PRN (17:45)
[2021-04-11] MEDS ORDERED: traMADol HCL 50 MG TAB PO PRN ×2 (17:45)
[2021-04-11] MEDS ORDERED: hydrALAZINE HCL 20 MG/ML VL IV PRN (17:45)
[2021-04-11] MEDS ORDERED: LACTULOSE 20Gm/30ML SOLN PO PRN (17:45)
[2021-04-11] MEDS ORDERED: cefTRIAXone 1GM/50ML D5W 50 ML IV ONE (18:30)
[2021-04-11] MEDS: LABETALOL HCL 5 MG/ML ML 20ML VIAL IV PRN (18:49)
[2021-04-11] MEDS: hydrALAZINE HCL 25 MG TAB PO SCH (21:24)
[2021-04-11] MEDS: PROMETHAZINE HCL 25 MG/ML 1ML IV PRN (21:25)
[2021-04-11] MEDS: cloNIDine HCL 0.1 MG TAB PO SCH (21:26)
[2021-04-11] MEDS: CARVEDILOL 12.5 MG TAB PO SCH (21:26)
[2021-04-11 21:49] VITALS: BP 153/94
[2021-04-11 22:00] VITALS: BP 153/94
[2021-04-12] MEDS ORDERED: LORazepam 2MG/ML-1ML VIAL IV PRN (00:30)
[2021-04-12 05:00] VITALS: BP 142/90
[2021-04-12 05:32] LABS: Basophils # (auto) 0.1 10 ^3/uL (0-0.2); Basophils % (auto) 0.6 % (0.0-2.0); Eosinophils # (auto) 0 10 ^3/uL (0-0.8); Eosinophils % (auto) 0.6 % (0.0-7.0); Hematocrit 39.1 % (36.0-46.0); Hemoglobin 12.7 g/dL (12.2-16.2); Lymphocytes # (auto) 0.6 10 ^3/uL (0.4-5.4); Lymphocytes % (auto) 7.3 % (10.0-50.0); Mean Corpuscular Hemoglobin 27.1 pg (28.0-32.0); Mean Corpuscular Hgb Conc. 32.5 g/dL (32.0-36.0); Mean Corpuscular Volume 83.2 fL (80.0-100.0); Monocytes # (auto) 0.6 10 ^3/uL (0-1.3); Neutrophils # (auto) 6.9 10 ^3/uL (1.6-8.6); Neutrophils % (auto) 84.5 % (37.0-80.0); Red Cell Distribution Width 18.8 % (11.8-14.3); White Blood Cell 8.1 10^3/uL (4.4-10.8)
[2021-04-12 05:54] LABS: Albumin 3.5 g/dL (3.4-5.0); Calcium 9.4 mg/dL (8.5-10.1); Potassium 4.4 mmol/L (3.5-5.1)
[2021-04-12 05:56] LABS: BUN/Creatinine Ratio 5.9
[2021-04-12 06:12] LABS: Bilirubin, Total 0.5 mg/dL (0.2-1.0); Total Protein 6.4 g/dL (6.4-8.2)
[2021-04-12] MEDS: hydrALAZINE HCL 25 MG TAB PO SCH ×3 (06:30→21:48)
[2021-04-12] MEDS: levETIRAcetam 500 MG TAB PO SCH ×2 (08:24→21:50)
[2021-04-12] MEDS: PANTOPRAZOLE 40 MG TAB PO SCH (08:24)
[2021-04-12] MEDS: cloNIDine HCL 0.1 MG TAB PO SCH ×2 (08:25→21:49)
[2021-04-12] MEDS: NIFEdipine ER 30 MG TAB PO SCH (08:25)
[2021-04-12] MEDS: CARVEDILOL 12.5 MG TAB PO SCH ×2 (08:25→21:51)
[2021-04-12] MEDS: ENOXAPARIN SOD 30 MG/0.3 ML SYRINGE SC SCH (08:26)
[2021-04-12 09:00] VITALS: BP 163/99
[2021-04-12] MEDS ORDERED: cefTRIAXone 1GM/50ML D5W 50 ML IV SCH (09:00)
[2021-04-12] MEDS: HYDROcodone-ACET 7.5/325MG TAB PO PRN ×2 (09:02→21:51)
[2021-04-12] MEDS: PROMETHAZINE HCL 25 MG/ML 1ML IV PRN (09:02)
[2021-04-12] MEDS ORDERED: LIDOCAINE VISCOUS 2% 15ML UD PO PRN (11:30)
[2021-04-12 13:00] VITALS: BP 137/75
[2021-04-12 17:00] VITALS: BP 196/108
[2021-04-12] MEDS ORDERED: hydrALAZINE HCL 25 MG TAB PO PRN (17:15)
[2021-04-12 22:07] VITALS: BP 129/74
[2021-04-13 05:11] VITALS: BP 123/78
[2021-04-13] MEDS: hydrALAZINE HCL 25 MG TAB PO SCH ×3 (06:45→22:19)
[2021-04-13 08:00] VITALS: BP 132/80
[2021-04-13 09:00] VITALS: BP 132/80
[2021-04-13] MEDS: PROMETHAZINE HCL 25 MG/ML 1ML IV PRN ×2 (09:02→17:56)
[2021-04-13] MEDS: cloNIDine HCL 0.1 MG TAB PO SCH ×2 (09:47→22:18)
[2021-04-13] MEDS: levETIRAcetam 500 MG TAB PO SCH ×2 (09:48→22:20)
[2021-04-13] MEDS: CARVEDILOL 12.5 MG TAB PO SCH ×2 (09:48→22:19)
[2021-04-13] MEDS: PANTOPRAZOLE 40 MG TAB PO SCH (09:48)
[2021-04-13] MEDS: NIFEdipine ER 30 MG TAB PO SCH (09:48)
[2021-04-13] MEDS: ENOXAPARIN SOD 30 MG/0.3 ML SYRINGE SC SCH (10:20)
[2021-04-13 12:55] VITALS: BP 144/79
[2021-04-13 16:46] VITALS: BP 142/80
[2021-04-13 22:25] VITALS: BP 116/75
[2021-04-14] VITALS (7 sets, daily range): BP systolic 126–145; BP diastolic 67–94
[2021-04-14 06:34] LABS: BUN/Creatinine Ratio 5.1; Calcium 8.7 mg/dL (8.5-10.1); Potassium 4.2 mmol/L (3.5-5.1)
[2021-04-14] MEDS: hydrALAZINE HCL 25 MG TAB PO SCH ×3 (06:50→22:05)
[2021-04-14] MEDS ORDERED: SODIUM CHL 0.9% 1000 ML BAG XX ONE (07:00)
[2021-04-14] MEDS: NIFEdipine ER 30 MG TAB PO SCH (10:00)
[2021-04-14] MEDS: cloNIDine HCL 0.1 MG TAB PO SCH ×2 (10:00→22:05)
[2021-04-14] MEDS: CARVEDILOL 12.5 MG TAB PO SCH ×2 (10:00→22:06)
[2021-04-14] MEDS: levETIRAcetam 500 MG TAB PO SCH ×2 (10:09→22:06)
[2021-04-14] MEDS: ENOXAPARIN SOD 30 MG/0.3 ML SYRINGE SC SCH (10:10)
[2021-04-14] MEDS: PANTOPRAZOLE 40 MG TAB PO SCH (10:10)
[2021-04-14] MEDS ORDERED: KEP500T PO (16:26)
[2021-04-14] MEDS ORDERED: EPOETIN ALFA-EPBX 4,000 UNIT/ML VIAL SC ONE (21:00)
[2021-04-15 05:00] VITALS: BP 150/97
[2021-04-15] MEDS: hydrALAZINE HCL 25 MG TAB PO SCH (05:56)
[2021-04-15] MEDS ORDERED: SODIUM CHL 0.9% 1000 ML BAG XX ONE (07:30)
[2021-04-15 08:03] VITALS: BP 145/94
[2021-04-15 09:00] VITALS: BP 171/107
[2021-04-15 09:32] LABS: BUN/Creatinine Ratio 4.2; Calcium 9.1 mg/dL (8.5-10.1); Potassium 4.6 mmol/L (3.5-5.1)
[2021-04-15] MEDS: cloNIDine HCL 0.1 MG TAB PO SCH (09:48)
[2021-04-15 09:49] LABS: Hemoglobin 11.2 g/dL (12.2-16.2)
[2021-04-15] MEDS: CARVEDILOL 12.5 MG TAB PO SCH (09:49)
[2021-04-15] MEDS: PANTOPRAZOLE 40 MG TAB PO SCH (09:49)
[2021-04-15] MEDS: NIFEdipine ER 30 MG TAB PO SCH (09:49)
[2021-04-15] MEDS: levETIRAcetam 500 MG TAB PO SCH (09:49)
[2021-04-15] MEDS ORDERED: HEPARIN SODIUM (PORCINE) 5000 UNITS/ML 1ML VIAL SC SCH (10:00)
[2021-04-15] MEDS: PROMETHAZINE HCL 25 MG/ML 1ML IV PRN (10:19)
[2021-04-15 10:45] VITALS: BP 171/107
[2021-04-15] MEDS: LABETALOL HCL 5 MG/ML ML 20ML VIAL IV PRN (12:08)
[2021-04-15 13:00] VITALS: BP 137/89
[2021-04-15] MEDS ORDERED: EPOETIN ALFA-EPBX 4,000 UNIT/ML VIAL SC ONE (21:00)
[2021-04-16] MEDS ORDERED: SODIUM CHL 0.9% 1000 ML BAG XX ONE (07:00)
[2021-04-16] MEDS ORDERED: EPOETIN ALFA-EPBX 10,000 UNIT/1ML VIAL SC ONE (21:00)
== END 2021-04-15 13:36 | disposition home or self-care (01) | DRG 100 ==
LOC: ER 13:32 → EDUNIT# 13:32 → TELE 17:36 → TELE-CENTR 20:36
PROVIDERS: ADMIT Internal Medicine; ATTEND Internal Medicine
PROC: 05HF33Z Insertion of Infusion Device into Left Cephalic Vein, Percutaneous Approach (ICD-10-PCS; principal; 2021-04-12)
PROC: B54NZZA Ultrasonography of Left Upper Extremity Veins, Guidance (ICD-10-PCS; 2021-04-12)
PROC: 5A1D70Z Performance of Urinary Filtration, Intermittent, Less than 6 Hours Per Day (ICD-10-PCS; 2021-04-12)
PROC: 5A1D70Z Performance of Urinary Filtration, Intermittent, Less than 6 Hours Per Day (ICD-10-PCS; 2021-04-14)
DX: G40.409 Other generalized epilepsy and epileptic syndromes, not intractable, without status epilepticus (principal); I50.33 Acute on chronic diastolic (congestive) heart failure; N18.6 End stage renal disease; I67.83 Posterior reversible encephalopathy syndrome; G92 Toxic encephalopathy; I13.2 Hypertensive heart and chronic kidney disease with heart failure and with stage 5 chronic kidney disease, or end stage renal disease; I16.1 Hypertensive emergency; E87.1 Hypo-osmolality and hyponatremia; N25.81 Secondary hyperparathyroidism of renal origin; E83.41 Hypermagnesemia; F32.9 Major depressive disorder, single episode, unspecified; J45.909 Unspecified asthma, uncomplicated; D69.6 Thrombocytopenia, unspecified; D63.1 Anemia in chronic kidney disease; E83.39 Other disorders of phosphorus metabolism; F41.9 Anxiety disorder, unspecified; Z20.822 Contact with and (suspected) exposure to COVID-19; F17.210 Nicotine dependence, cigarettes, uncomplicated; Z99.2 Dependence on renal dialysis; Z79.899 Other long term (current) drug therapy; Z82.49 Family history of ischemic heart disease and other diseases of the circulatory system; Z86.16 Personal history of COVID-19; Z68.24 Body mass index [BMI] 24.0-24.9, adult; E83.89 Other disorders of mineral metabolism
CPT/HCPCS: 36415; 70450; 70551; 71045; 80048; 80053; 82962; 83735; 84100; 84702; 85007; 85014; 85018; 85025; 85027; 85652; 87426; 90935; 93005; 95819; 96365; 96375; 99291; G0378; J0696; J1642; J2405; J7060

== ENCOUNTER 2021-05-09 22:01 | Emergency (ER) | payer MEDICARE, MEDICAID ==
[~2021-05-09] VITALS: Ht 172.7 cm; Wt 63.5 kg
[~2021-05-09 22:01] MED LIST changes: +CLON0.1T PO; +KEP500T PO
[2021-05-09 22:05] VITALS: BP 162/105
== END 2021-05-10 01:55 | disposition left against medical advice (07) ==
LOC: EDBD 22:01 → ER 22:07
DX: R51.9 Headache, unspecified (principal); Z53.21 Procedure and treatment not carried out due to patient leaving prior to being seen by health care provider

== ENCOUNTER 2021-05-16 04:42 | Inpatient (IN) | payer MEDICARE, MEDICAID ==
[~2021-05-16] VITALS: Ht 160 cm; Wt 81.3 kg
[2021-05-16] MEDS ORDERED: cloNIDine HCL 0.1 MG TAB ONE (04:51)
[2021-05-16] MEDS ORDERED: cloNIDine HCL 0.1 MG TAB PO ONE ×3 (05:15→14:00)
[2021-05-16 07:19] LABS: Basophils # (auto) 0.1 10 ^3/uL (0-0.2); Basophils % (auto) 0.8 % (0.0-2.0); Eosinophils # (auto) 0.1 10 ^3/uL (0-0.8); Hematocrit 27.4 % (36.0-46.0); Hemoglobin 8.9 g/dL (12.2-16.2); Lymphocytes # (auto) 0.8 10 ^3/uL (0.4-5.4); Lymphocytes % (auto) 8.5 % (10.0-50.0); Mean Corpuscular Hemoglobin 27.4 pg (28.0-32.0); Mean Corpuscular Hgb Conc. 32.7 g/dL (32.0-36.0); Mean Corpuscular Volume 83.7 fL (80.0-100.0); Monocytes # (auto) 0.6 10 ^3/uL (0-1.3); Monocytes % (auto) 6.7 % (0.0-12.0); Neutrophils # (auto) 7.3 10 ^3/uL (1.6-8.6); Nucleated Red Blood Cells % 0.1 %; Red Blood Cells 3.27 10^6/uL (4.0-5.20); Red Cell Distribution Width 18.8 % (11.8-14.3); White Blood Cell 8.8 10^3/uL (4.4-10.8)
[2021-05-16 07:35] LABS: Albumin 3.2 g/dL (3.4-5.0); Calcium 9.5 mg/dL (8.5-10.1); Magnesium 2.2 mg/dL (1.6-2.6); Potassium 3.4 mmol/L (3.5-5.1)
[2021-05-16 07:40] LABS: BUN/Creatinine Ratio 4.8; Bilirubin, Total 0.6 mg/dL (0.2-1.0); Total Protein 6.4 g/dL (6.4-8.2)
[2021-05-16] MEDS ORDERED: hydrALAZINE HCL 20 MG/ML VL IV ONE (13:45)
[2021-05-16] MEDS ORDERED: MORPHINE SULFATE 4 MG/ML SYR/VIAL IV ONE (13:45)
[2021-05-16] MEDS ORDERED: LABETALOL HCL 5 MG/ML 4ML SYRINGE IV ONE (14:00)
[2021-05-16] MEDS ORDERED: PATIENTS OWN MEDICATION (Hydralazine Hcl 1 TAB) PO SCH (14:00)
[2021-05-16] MEDS ORDERED: ONDANSETRON HCL 4 MG/2 ML VIAL IV ONE (14:00)
[2021-05-16] MEDS ORDERED: NIFEdipine ER 30 MG TAB PO ONE (14:00)
[2021-05-16] MEDS ORDERED: MORPHINE SULFATE INJECTION 2 MG/ML SYRG IV PRN (14:00)
[2021-05-16] MEDS ORDERED: CARVEDILOL 12.5 MG TAB PO ONE (14:00)
[2021-05-16] MEDS ORDERED: hydrALAZINE HCL 25 MG TAB PO ONE (14:00)
[2021-05-16] MEDS ORDERED: NITROGLYCERIN 0.4 MG SL TAB SL PRN (14:00)
[2021-05-16] MEDS ORDERED: TEMAZEPAM 15 MG CAP PO PRN (14:15)
[2021-05-16] MEDS ORDERED: traMADol HCL 50 MG TAB PO PRN (14:15)
[2021-05-16] MEDS ORDERED: ACETAMINOPHEN 500 MG TAB PO PRN (14:15)
[2021-05-16] MEDS ORDERED: LACTULOSE 20Gm/30ML SOLN PO PRN (14:15)
[2021-05-16] MEDS ORDERED: cefTRIAXone 1GM/50ML D5W 50 ML IV SCH (14:24)
[2021-05-16] MEDS ORDERED: AZITHROMYCIN 500MG/ 250ML 250 ML IV SCH (14:24)
[2021-05-16] MEDS: hydrALAZINE HCL 25 MG TAB PO SCH ×2 (15:01→23:11)
[2021-05-16] MEDS ORDERED: NITROGLYCERIN 50MG/250ML 250 ML IV SCH ×2 (15:30)
[2021-05-16 16:48] LABS: CRP High Sensitivity 5.45 mg/dL (< 0.3)
[2021-05-16] MEDS: ALBUTEROL SULF 2.5 MG/0.5ML(0.5%) NEB SOLN NEB SCH (18:34)
[2021-05-16] MEDS: IPRATROPIUM BROM 0.5 MG/2.5ML INH SOL NEB SCH (18:34)
[2021-05-16 19:04] VITALS: BP 158/114
[2021-05-16] MEDS: PROMETHAZINE HCL 25 MG/ML 1ML IV PRN (20:13)
[2021-05-16] MEDS: MORPHINE SULFATE INJECTION 2 MG/ML SYRG IV PRN (20:13)
[2021-05-16] MEDS ORDERED: PATIENTS OWN MEDICATION (Carvedilol (Coreg) 1 TAB) PO SCH (22:00)
[2021-05-16] MEDS: SODIUM CHLOR 0.9% PF (SALINE LOCK) 10ML VIAL/SYR IV SCH (23:06)
[2021-05-16] MEDS: levETIRAcetam 500 MG TAB PO SCH (23:11)
[2021-05-16] MEDS: CARVEDILOL 12.5 MG TAB PO SCH (23:11)
[2021-05-16] MEDS: cloNIDine HCL 0.1 MG TAB PO SCH (23:11)
[2021-05-16] MEDS: ATORVASTATIN 20 MG TAB PO SCH (23:11)
[2021-05-17] MEDS: ALBUTEROL SULF 2.5 MG/0.5ML(0.5%) NEB SOLN NEB SCH ×3 (00:08→11:47)
[2021-05-17] MEDS: IPRATROPIUM BROM 0.5 MG/2.5ML INH SOL NEB SCH ×4 (00:08→18:35)
[2021-05-17] MEDS: PROMETHAZINE HCL 25 MG/ML 1ML IV PRN ×2 (00:34→10:27)
[2021-05-17] MEDS: MORPHINE SULFATE INJECTION 2 MG/ML SYRG IV PRN ×3 (05:03→21:00)
[2021-05-17] MEDS: hydrALAZINE HCL 25 MG TAB PO SCH ×3 (06:00→23:29)
[2021-05-17] MEDS: SODIUM CHLOR 0.9% PF (SALINE LOCK) 10ML VIAL/SYR IV SCH ×3 (06:21→22:00)
[2021-05-17] MEDS: cloNIDine HCL 0.1 MG TAB PO SCH ×2 (09:58→22:46)
[2021-05-17] MEDS ORDERED: PATIENTS OWN MEDICATION (Nifedipine (Nifedipine Er) 1 TAB) PO SCH (10:00)
[2021-05-17] MEDS: levETIRAcetam 500 MG TAB PO SCH ×2 (10:01→22:48)
[2021-05-17] MEDS: CARVEDILOL 12.5 MG TAB PO SCH ×2 (10:01→22:47)
[2021-05-17] MEDS: NIFEdipine ER 30 MG TAB PO SCH (10:02)
[2021-05-17] MEDS: PANTOPRAZOLE 40 MG TAB PO SCH (10:02)
[2021-05-17] MEDS: ENOXAPARIN SOD 30 MG/0.3 ML SYRINGE SC SCH (10:03)
[2021-05-17] MEDS: ALBUTEROL SULF 2.5 MG/0.5ML(0.5%) NEB SOLN NEB PRN (18:35)
[2021-05-17] MEDS ORDERED: HYDR12.56 PO (19:18)
[2021-05-17 20:00] VITALS: BP 127/81
[2021-05-17] MEDS: ONDANSETRON HCL 4 MG/2 ML VIAL IV PRN (21:00)
[2021-05-17 22:00] VITALS: BP 152/95
[2021-05-17] MEDS: ATORVASTATIN 20 MG TAB PO SCH (22:48)
[2021-05-18 05:00] VITALS: BP 138/82
[2021-05-18 05:33] LABS: Hematocrit 32.4 % (36.0-46.0); Hemoglobin 10.5 g/dL (12.2-16.2)
[2021-05-18 05:37] LABS: Basophils # (auto) 0.1 10 ^3/uL (0-0.2); Basophils % (auto) 0.9 % (0.0-2.0); Eosinophils # (auto) 0.1 10 ^3/uL (0-0.8); Eosinophils % (auto) 1.8 % (0.0-7.0); Hematocrit 31.9 % (36.0-46.0); Hemoglobin 10.5 g/dL (12.2-16.2); Mean Corpuscular Hemoglobin 27.5 pg (28.0-32.0); Mean Corpuscular Hgb Conc. 32.8 g/dL (32.0-36.0); Mean Corpuscular Volume 83.6 fL (80.0-100.0); Monocytes # (auto) 0.5 10 ^3/uL (0-1.3); Monocytes % (auto) 7.3 % (0.0-12.0); Neutrophils # (auto) 5.2 10 ^3/uL (1.6-8.6); Nucleated Red Blood Cells % 0.1 %; Red Blood Cells 3.81 10^6/uL (4.0-5.20); Red Cell Distribution Width 19.1 % (11.8-14.3); White Blood Cell 6.9 10^3/uL (4.4-10.8)
[2021-05-18 05:58] LABS: Albumin 2.7 g/dL (3.4-5.0); Calcium 8.6 mg/dL (8.5-10.1); Potassium 3.7 mmol/L (3.5-5.1)
[2021-05-18 06:02] LABS: BUN/Creatinine Ratio 5.9; Bilirubin, Total 0.7 mg/dL (0.2-1.0); Total Protein 6.2 g/dL (6.4-8.2)
[2021-05-18 06:04] LABS: % Iron Saturation 23.4 % (15-50)
[2021-05-18] MEDS: SODIUM CHLOR 0.9% PF (SALINE LOCK) 10ML VIAL/SYR IV SCH ×2 (06:15→14:37)
[2021-05-18] MEDS: hydrALAZINE HCL 25 MG TAB PO SCH ×2 (06:15→14:00)
[2021-05-18] MEDS: IPRATROPIUM BROM 0.5 MG/2.5ML INH SOL NEB SCH ×3 (06:49→14:30)
[2021-05-18] MEDS: ALBUTEROL SULF 2.5 MG/0.5ML(0.5%) NEB SOLN NEB PRN ×2 (06:50)
[2021-05-18] MEDS ORDERED: SODIUM CHL 0.9% 1000 ML BAG XX ONE (07:00)
[2021-05-18 09:00] VITALS: BP 152/104
[2021-05-18] MEDS: cloNIDine HCL 0.1 MG TAB PO SCH (10:00)
[2021-05-18] MEDS: CARVEDILOL 12.5 MG TAB PO SCH (10:00)
[2021-05-18] MEDS: PANTOPRAZOLE 40 MG TAB PO SCH (10:00)
[2021-05-18] MEDS: levETIRAcetam 500 MG TAB PO SCH (10:00)
[2021-05-18] MEDS: NIFEdipine ER 30 MG TAB PO SCH (10:00)
[2021-05-18] MEDS: ENOXAPARIN SOD 30 MG/0.3 ML SYRINGE SC SCH (10:00)
[2021-05-18 13:00] VITALS: BP 167/77
[2021-05-18] MEDS: ONDANSETRON HCL 4 MG/2 ML VIAL IV PRN (14:16)
[2021-05-18] MEDS: MORPHINE SULFATE INJECTION 2 MG/ML SYRG IV PRN (14:16)
[2021-05-18 17:00] VITALS: BP 149/88
[2021-05-18 17:45] VITALS: BP 167/77
[2021-05-18] MEDS ORDERED: EPOETIN ALFA-EPBX 4,000 UNIT/ML VIAL SC ONE (21:00)
== END 2021-05-18 18:45 | disposition home or self-care (01) | DRG 291 ==
LOC: EDBD 04:42 → ER 04:42 → EDUNIT# 04:42 → TELE 13:46 → OVERFLOW 15:19 → TELE-WESTW 05-17 18:25
PROVIDERS: ADMIT Internal Medicine; ATTEND Internal Medicine
PROC: 05HC33Z Insertion of Infusion Device into Left Basilic Vein, Percutaneous Approach (ICD-10-PCS; principal; 2021-05-17)
PROC: B54NZZA Ultrasonography of Left Upper Extremity Veins, Guidance (ICD-10-PCS; 2021-05-17)
PROC: 5A1D70Z Performance of Urinary Filtration, Intermittent, Less than 6 Hours Per Day (ICD-10-PCS; 2021-05-18)
DX: I13.2 Hypertensive heart and chronic kidney disease with heart failure and with stage 5 chronic kidney disease, or end stage renal disease (principal); N18.6 End stage renal disease; I50.33 Acute on chronic diastolic (congestive) heart failure; I16.1 Hypertensive emergency; G40.909 Epilepsy, unspecified, not intractable, without status epilepticus; K80.20 Calculus of gallbladder without cholecystitis without obstruction; D63.1 Anemia in chronic kidney disease; D69.59 Other secondary thrombocytopenia; E66.9 Obesity, unspecified; E87.6 Hypokalemia; J45.909 Unspecified asthma, uncomplicated; F41.9 Anxiety disorder, unspecified; Z20.822 Contact with and (suspected) exposure to COVID-19; F17.210 Nicotine dependence, cigarettes, uncomplicated; Z99.2 Dependence on renal dialysis; Z68.27 Body mass index [BMI] 27.0-27.9, adult; Z82.49 Family history of ischemic heart disease and other diseases of the circulatory system; Z79.899 Other long term (current) drug therapy; B94.8 Sequelae of other specified infectious and parasitic diseases
CPT/HCPCS: 36415; 70450; 71045; 80053; 82550; 82728; 83540; 83550; 83735; 83880; 84484; 85014; 85018; 85025; 85652; 86141; 87081; 87426; 90935; 93005; 94640; 96365; 96375; G0378; J0696; J1642; J2405; J3490

== ENCOUNTER 2021-05-31 07:11 | Emergency (ER) | payer MEDICARE, MEDICAID ==
[~2021-05-31] VITALS: Ht 160 cm; Wt 58.1 kg
[~2021-05-31 07:11] MED LIST changes: +HYDR12.56 PO
[2021-05-31 07:37] VITALS: BP 187/123
== END 2021-05-31 07:31 | disposition home or self-care (01) ==
LOC: ER 07:11 → EDBD 07:11 → ER 07:31
DX: I11.0 Hypertensive heart disease with heart failure (principal); I50.33 Acute on chronic diastolic (congestive) heart failure; I13.2 Hypertensive heart and chronic kidney disease with heart failure and with stage 5 chronic kidney disease, or end stage renal disease; N18.6 End stage renal disease; J45.909 Unspecified asthma, uncomplicated; F17.210 Nicotine dependence, cigarettes, uncomplicated; Z79.899 Other long term (current) drug therapy
CPT/HCPCS: 93005

== ENCOUNTER 2021-07-12 05:44 | Emergency (ER) | payer MEDICARE, MEDICAID ==
[~2021-07-12] VITALS: Ht 160 cm; Wt 61.2 kg
[2021-07-12 05:46] VITALS: BP 189/127
[2021-07-12] MEDS ORDERED: ONDANSETRON ODT 4 MG TAB PO ONE (06:00)
[2021-07-12] MEDS ORDERED: HYDROcodone-ACET 5/325MG TAB PO ONE (06:00)
[2021-07-12 06:39] LABS: Basophils # (auto) 0.1 10 ^3/uL (0-0.2); Basophils % (auto) 0.7 % (0.0-2.0); Eosinophils # (auto) 0.1 10 ^3/uL (0-0.8); Eosinophils % (auto) 0.7 % (0.0-7.0); Hematocrit 32.4 % (36.0-46.0); Hemoglobin 10.6 g/dL (12.2-16.2); Lymphocytes # (auto) 1.7 10 ^3/uL (0.4-5.4); Lymphocytes % (auto) 15.6 % (10.0-50.0); Mean Corpuscular Hemoglobin 29.1 pg (28.0-32.0); Mean Corpuscular Hgb Conc. 32.6 g/dL (32.0-36.0); Mean Corpuscular Volume 89.3 fL (80.0-100.0); Monocytes # (auto) 0.8 10 ^3/uL (0-1.3); Monocytes % (auto) 7.5 % (0.0-12.0); Neutrophils # (auto) 8.1 10 ^3/uL (1.6-8.6); Neutrophils % (auto) 75.5 % (37.0-80.0); Nucleated Red Blood Cells % 0.2 %; Red Blood Cells 3.63 10^6/uL (4.0-5.20); White Blood Cell 10.7 10^3/uL (4.4-10.8)
[2021-07-12 06:52] LABS: Red Cell Distribution Width 21.3 % (11.8-14.3)
[2021-07-12 06:58] LABS: Calcium 9.9 mg/dL (8.5-10.1); Magnesium 3.2 mg/dL (1.6-2.6); Potassium 4.3 mmol/L (3.5-5.1)
[2021-07-12 07:06] LABS: BUN/Creatinine Ratio 5.8; Bilirubin, Total 0.5 mg/dL (0.2-1.0); Total Protein 7.2 g/dL (6.4-8.2)
[2021-07-12] MEDS ORDERED: cloNIDine HCL 0.1 MG TAB PO ONE (07:30)
== END 2021-07-12 07:49 | disposition left against medical advice (07) ==
LOC: ER 05:44
DX: I13.2 Hypertensive heart and chronic kidney disease with heart failure and with stage 5 chronic kidney disease, or end stage renal disease (principal); E11.22 Type 2 diabetes mellitus with diabetic chronic kidney disease; N18.6 End stage renal disease; I50.9 Heart failure, unspecified; J45.909 Unspecified asthma, uncomplicated; I16.0 Hypertensive urgency; R10.9 Unspecified abdominal pain; F17.210 Nicotine dependence, cigarettes, uncomplicated; F12.10 Cannabis abuse, uncomplicated; Z79.899 Other long term (current) drug therapy; Z53.29 Procedure and treatment not carried out because of patient's decision for other reasons
CPT/HCPCS: 36415; 80053; 83605; 83690; 83735; 83880; 84484; 84702; 85025; 99291